=== PATIENT | female | born 1990 | race Caucasian/White ===

== ENCOUNTER → 2016-08-16 | Emergency (ER) | payer MEDICAID, OTHER ==
[~2016-08-16] MED LIST: ALBU18; DIAZ-104; IBUP600T27; NOR5T
== END | disposition left against medical advice (07) ==
LOC: ER 14:12
DX: R10.9 Unspecified abdominal pain (principal); I95.9 Hypotension, unspecified; Z53.21 Procedure and treatment not carried out due to patient leaving prior to being seen by health care provider

== ENCOUNTER 2017-12-14 08:57 | Emergency (ER) | payer MEDICAID ==
[~2017-12-14] VITALS: Ht 152.4 cm; Wt 49.9 kg
[~2017-12-14 08:57] MED LIST changes: +HYDR-4683; -NOR5T
[2017-12-14 09:36] VITALS: BP 126/65
[2017-12-14] MEDS ORDERED: SODIUM CHLORIDE 0.9% 1,000 ML IV ONE (09:45)
[2017-12-14 10:14] LABS: Basophils # (auto) 0 uL; Basophils % (auto) 0.2 % (0.0-2.0); Eosinophils # (auto) 0 uL; Eosinophils % (auto) 0.3 % (0.0-7.0); Hematocrit 36.7 % (36.0-46.0); Hemoglobin 12.1 g/dL (12.2-16.2); Lymphocytes % (auto) 19.9 % (10.0-50.0); Mean Corpuscular Hemoglobin 28.1 pg (28.0-32.0); Mean Corpuscular Volume 85.4 fL (80.0-100.0); Monocytes # (auto) 0.3 uL; Monocytes % (auto) 5.9 % (0.0-12.0); Neutrophils # (auto) 3.6 uL; Neutrophils % (auto) 73.7 % (37.0-80.0); Platelet Count (auto) 326 10^3/uL (140-450); Red Blood Cells 4.29 10^6/uL (4.0-5.20); Red Cell Distribution Width 15.2 % (11.8-14.3); White Blood Cell 4.9 10^3/uL (4.4-10.8)
[2017-12-14 10:34] LABS: Albumin 4.3 g/dL (3.4-5.0); BUN/Creatinine Ratio 12.7; Bilirubin, Total 0.4 mg/dL (0.2-1.0); Calcium 8.6 mg/dL (8.5-10.1); Potassium 3.8 mmol/L (3.5-5.1); Total Protein 7.5 g/dL (6.4-8.2)
[2017-12-14 10:36] LABS: Urine WBC None Seen /hpf (0 - 5)
[2017-12-14 11:01] LABS: Alcohol, Urine < 3.0 mg/dL (0-5); Amphetamine Screen, Urine NEGATIVE (NEGATIVE); Barbiturate Scree,Urine NEGATIVE (NEGATIVE); Benzodiazephine Screen, Urine POSITIVE (NEGATIVE); Cannabinoid Screen, Urine POSITIVE (NEGATIVE); Cocaine Screen, Urine NEGATIVE (NEGATIVE); Opiate Scree,Urine NEGATIVE (NEGATIVE); Phencyclidine Screen, Urine NEGATIVE (NEGATIVE)
[2017-12-14 11:12] LABS: Urine Bacteria NONE SEEN /hpf (None Seen); Urine Blood 3+ /uL (Negative); Urine Specific Gravity 1.008 (1.001-1.035)
== END 2017-12-14 11:24 | disposition home or self-care (01) ==
LOC: ER 08:57
DX: N20.0 Calculus of kidney (principal); J45.909 Unspecified asthma, uncomplicated; F41.9 Anxiety disorder, unspecified; R42 Dizziness and giddiness
CPT/HCPCS: 36415; 70450; 74176; 80053; 80307; 81001; 81025; 85025

== ENCOUNTER 2019-04-16 19:55 | Emergency (ER) | payer MEDICAID, OTHER ==
[~2019-04-16] VITALS: Ht 152.4 cm; Wt 49.0 kg
[~2019-04-16 19:55] MED LIST changes: -DIAZ-104; +DIAZ5TAB; -HYDR-4683; +HYDR-4833
[2019-04-16] MEDS ORDERED: methylPREDNISolone SOD SUCC 125 MG/2 ML VL IM ONE (23:00)
[2019-04-16] MEDS ORDERED: diphenhdrAMINE HCL 50 MG/1 ML VL IM ONE (23:00)
[2019-04-16 23:25] VITALS: BP 109/56
== END 2019-04-16 23:27 | disposition home or self-care (01) ==
LOC: ER 19:57
DX: H66.91 Otitis media, unspecified, right ear (principal); L25.8 Unspecified contact dermatitis due to other agents; R51 Headache; J45.909 Unspecified asthma, uncomplicated; Z98.61 Coronary angioplasty status; Z87.442 Personal history of urinary calculi
CPT/HCPCS: 96372; 99283; J1200; J2930

== ENCOUNTER 2021-06-06 07:56 | Inpatient (IN) | payer OTHER ==
[~2021-06-06] VITALS: Ht 152.4 cm; Wt 57.4 kg
[2021-06-06] MEDS ORDERED: SODIUM CHLORIDE 0.9% 1,000 ML IV ONE ×2 (08:30)
[2021-06-06] MEDS ORDERED: PROCHLORPERAZINE EDISYLATE 5 MG/ML 2ML VIAL IV ONE (08:30)
[2021-06-06 08:34] LABS: Eosinophils # (auto) 0 10 ^3/uL (0-0.8); Eosinophils % (auto) 0.3 % (0.0-7.0); Monocytes # (auto) 0.7 10 ^3/uL (0-1.3); Red Cell Distribution Width 16.8 % (11.8-14.3)
[2021-06-06 08:38] LABS: Basophils # (auto) 0 10 ^3/uL (0-0.2); Basophils % (auto) 0.2 % (0.0-2.0); Hematocrit 33.6 % (36.0-46.0); Hemoglobin 10.9 g/dL (12.2-16.2); Lymphocytes # (auto) 1.2 10 ^3/uL (0.4-5.4); Lymphocytes % (auto) 8.2 % (10.0-50.0); Mean Corpuscular Hemoglobin 24.3 pg (28.0-32.0); Mean Corpuscular Hgb Conc. 32.4 g/dL (32.0-36.0); Monocytes % (auto) 4.5 % (0.0-12.0); Neutrophils # (auto) 12.7 10 ^3/uL (1.6-8.6); Neutrophils % (auto) 86.8 % (37.0-80.0); Red Blood Cells 4.48 10^6/uL (4.0-5.20); White Blood Cell 14.7 10^3/uL (4.4-10.8)
[2021-06-06 08:45] LABS: Albumin 4.4 g/dL (3.4-5.0); Calcium 9.3 mg/dL (8.5-10.1); Potassium 3.9 mmol/L (3.5-5.1)
[2021-06-06 08:49] LABS: Bilirubin, Total 0.2 mg/dL (0.2-1.0); Total Protein 7.7 g/dL (6.4-8.2)
[2021-06-06] MEDS ORDERED: MORPHINE SULFATE 4 MG/ML SYR/VIAL IV ONE (09:00)
[2021-06-06 10:20] LABS: Urine Bacteria NONE SEEN /hpf (None Seen); Urine Blood Negative /uL (Negative); Urine Mucus FEW (None Seen); Urine Specific Gravity 1.023 (1.001-1.035); Urine WBC 1 /hpf (0 - 5)
[2021-06-06] MEDS ORDERED: ONDANSETRON HCL 4 MG/2 ML VIAL ONE (10:35)
[2021-06-06 10:45] LABS: Alcohol, Urine < 3.0 mg/dL (0-10); Amphetamine Screen, Urine NEGATIVE (NEGATIVE); Barbiturate Scree,Urine NEGATIVE (NEGATIVE); Benzodiazephine Screen, Urine NEGATIVE (NEGATIVE); Cannabinoid Screen, Urine POSITIVE (NEGATIVE); Cocaine Screen, Urine NEGATIVE (NEGATIVE); Opiate Scree,Urine NEGATIVE (NEGATIVE); Phencyclidine Screen, Urine NEGATIVE (NEGATIVE)
[2021-06-06] MEDS ORDERED: ONDANSETRON HCL 4 MG/2 ML VIAL IV ONE ×2 (11:00→16:15)
[2021-06-06] MEDS ORDERED: metroNIDAZOLE 500MG/100ML 100 ML IV ONE (11:45)
[2021-06-06] MEDS ORDERED: cefTRIAXone 1GM/50ML D5W 50 ML IV ONE (11:45)
[2021-06-06] MEDS ORDERED: PROMETHAZINE HCL 25 MG/ML 1ML ONE (13:11)
[2021-06-06] MEDS ORDERED: PROMETHAZINE HCL 25 MG/ML 1ML IV ONE (13:15)
[2021-06-06 14:03] LABS: INR 1.1 (0.9-1.15); Partial Thromboplastin Time 27.1 sec (23.6-33.0)
[2021-06-06] MEDS ORDERED: NITROGLYCERIN 0.4 MG SL TAB SL PRN (15:00)
[2021-06-06] MEDS ORDERED: MORPHINE SULFATE INJECTION 2 MG/ML SYRG IV PRN ×2 (15:00→17:15)
[2021-06-06] MEDS ORDERED: ONDANSETRON HCL 4 MG/2 ML VIAL IV PRN ×2 (17:00→17:15)
[2021-06-06] MEDS ORDERED: ceFAZolin 1GM/50ML 50 ML IV ONE (17:15)
[2021-06-06] MEDS ORDERED: PROCHLORPERAZINE EDISYLATE 5 MG/ML 2ML VIAL IV PRN (17:15)
[2021-06-06] MEDS ORDERED: FAMOTIDINE (10MG/ML) 2ML VL IV ONE (17:15)
[2021-06-06] MEDS ORDERED: LORazepam 0.5 MG TAB PO PRN (17:15)
[2021-06-06] MEDS ORDERED: ALBUTEROL SULF 2.5 MG/0.5ML(0.5%) NEB SOLN NEB PRN (17:30)
[2021-06-06] MEDS: D5W/SOD CHLO 0.9% 1,000 ML IV SCH (17:35)
[2021-06-07] MEDS: ceFAZolin 1GM/50ML 50 ML IV SCH ×3 (02:58→16:27)
[2021-06-07 05:37] VITALS: BP 95/53
[2021-06-07] MEDS ORDERED: SUCCINYLCHOLINE CHLORIDE 20 MG/ML 10ML VIAL IV ONE (06:55)
[2021-06-07] MEDS ORDERED: ROCURONIUM 10MG/ML 10ML VIAL IV ONE (06:55)
[2021-06-07] MEDS ORDERED: LIDOCAINE 1%-Mpf/Epinephrine 1:200,000 ONE (07:02)
[2021-06-07 07:08] LABS: Basophils # (auto) 0 10 ^3/uL (0-0.2); Eosinophils # (auto) 0 10 ^3/uL (0-0.8); Hemoglobin 8.9 g/dL (12.2-16.2); Monocytes # (auto) 0.4 10 ^3/uL (0-1.3); Neutrophils # (auto) 5.3 10 ^3/uL (1.6-8.6)
[2021-06-07 07:12] LABS: Basophils % (auto) 0.3 % (0.0-2.0); Eosinophils % (auto) 0.1 % (0.0-7.0); Hematocrit 26.4 % (36.0-46.0); Lymphocytes % (auto) 14.9 % (10.0-50.0); Mean Corpuscular Hemoglobin 25.3 pg (28.0-32.0); Mean Corpuscular Hgb Conc. 33.7 g/dL (32.0-36.0); Mean Corpuscular Volume 75.1 fL (80.0-100.0); Monocytes % (auto) 5.3 % (0.0-12.0); Neutrophils % (auto) 79.4 % (37.0-80.0); Nucleated Red Blood Cells % 0.1 %; Red Blood Cells 3.51 10^6/uL (4.0-5.20); Red Cell Distribution Width 16.7 % (11.8-14.3); White Blood Cell 6.7 10^3/uL (4.4-10.8)
[2021-06-07 07:18] LABS: INR 1.11 (0.9-1.15); Partial Thromboplastin Time 29.4 sec (23.6-33.0)
[2021-06-07 07:23] LABS: Potassium 3.2 mmol/L (3.5-5.1)
[2021-06-07] MEDS ORDERED: PROPOFOL 10 MG/ML 20 ML IV ONE (07:30)
[2021-06-07] MEDS ORDERED: ONDANSETRON HCL 4 MG/2 ML VIAL ONE (07:30)
[2021-06-07] MEDS ORDERED: GLYCOPYRROLATE 0.2 MG/ML 1ML VIAL ONE (07:30)
[2021-06-07] MEDS ORDERED: MIDAZOLAM HCL 2MG/2ML 2ml VIAL (1mg/ml) ONE (07:30)
[2021-06-07] MEDS ORDERED: MEPERIDINE HCL (25 MG/ML) 1ML VIAL ONE (07:30)
[2021-06-07] MEDS ORDERED: NEOSTIGMINE 1 MG/ML INJ (10mg/10ML VIAL) ONE (07:30)
[2021-06-07] MEDS ORDERED: SODIUM CHLORIDE LOCK 10 ML ONE (07:30)
[2021-06-07] MEDS ORDERED: fentaNYL CITRATE 100 MCG/2 ML VL ONE (07:30)
[2021-06-07 07:35] LABS: Albumin 3.5 g/dL (3.4-5.0); BUN/Creatinine Ratio 18.8; Bilirubin, Total 0.4 mg/dL (0.2-1.0); CRP High Sensitivity 1.44 mg/dL (< 0.3); Calcium 8.1 mg/dL (8.5-10.1); Phosphorus 1.8 mg/dL (2.5-4.90); Total Protein 6.1 g/dL (6.4-8.2)
[2021-06-07 08:05] VITALS: BP 115/65
[2021-06-07 09:00] VITALS: BP 115/65
[2021-06-07] MEDS: FAMOTIDINE (10MG/ML) 2ML VL IV SCH (09:43)
[2021-06-07] MEDS: ENOXAPARIN SOD 40 MG/0.4 ML SYRINGE SC SCH (09:44)
[2021-06-07 13:00] VITALS: BP 119/59
[2021-06-07] MEDS: D5W/SOD CHLO 0.9% 1,000 ML IV SCH (13:42)
[2021-06-07] MEDS: ACETAMINOPHEN 325 MG TAB PO PRN ×2 (14:38→20:12)
[2021-06-07] MEDS ORDERED: POTASSIUM PHOSPHATE 44 MEQ in D5W 5% 250 ML IV ONE (15:15)
[2021-06-07 17:00] VITALS: BP 110/70
[2021-06-07 17:08] LABS: Amphetamine Screen, Urine NEGATIVE (NEGATIVE); Barbiturate Scree,Urine NEGATIVE (NEGATIVE); Benzodiazephine Screen, Urine NEGATIVE (NEGATIVE); Cannabinoid Screen, Urine POSITIVE (NEGATIVE); Cocaine Screen, Urine NEGATIVE (NEGATIVE); Opiate Scree,Urine NEGATIVE (NEGATIVE); Phencyclidine Screen, Urine NEGATIVE (NEGATIVE)
[2021-06-07 22:00] VITALS: BP 101/67
[2021-06-08] MEDS: ceFAZolin 1GM/50ML 50 ML IV SCH ×3 (01:25→18:00)
[2021-06-08] MEDS: ACETAMINOPHEN 325 MG TAB PO PRN ×3 (04:49→20:51)
[2021-06-08 05:00] VITALS: BP 99/54
[2021-06-08 07:11] LABS: Basophils # (auto) 0 10 ^3/uL (0-0.2); Basophils % (auto) 0.6 % (0.0-2.0); Eosinophils # (auto) 0 10 ^3/uL (0-0.8); Eosinophils % (auto) 0.6 % (0.0-7.0); Hematocrit 26.3 % (36.0-46.0); Hemoglobin 8.8 g/dL (12.2-16.2); Lymphocytes # (auto) 1.2 10 ^3/uL (0.4-5.4); Lymphocytes % (auto) 24.5 % (10.0-50.0); Mean Corpuscular Hemoglobin 25.1 pg (28.0-32.0); Mean Corpuscular Hgb Conc. 33.6 g/dL (32.0-36.0); Mean Corpuscular Volume 74.7 fL (80.0-100.0); Monocytes # (auto) 0.5 10 ^3/uL (0-1.3); Monocytes % (auto) 9.8 % (0.0-12.0); Neutrophils # (auto) 3.1 10 ^3/uL (1.6-8.6); Neutrophils % (auto) 64.5 % (37.0-80.0); Nucleated Red Blood Cells % 0.1 %; Red Blood Cells 3.52 10^6/uL (4.0-5.20); White Blood Cell 4.8 10^3/uL (4.4-10.8)
[2021-06-08 07:45] LABS: Calcium 8.8 mg/dL (8.5-10.1); Chloride 111 mmol/L (98-107); Potassium 3.4 mmol/L (3.5-5.1); Sodium 141 mmol/L (136-145)
[2021-06-08 08:06] LABS: Alanine Aminotransferase 14 U/L (13-56); Albumin 3.6 g/dL (3.4-5.0); Alkaline Phosphatase 44 U/L (45-117); Anion Gap 7 (5-15); Aspartate Aminotransferase 12 U/L (15-37); BUN/Creatinine Ratio 7.8; Bilirubin, Total 0.4 mg/dL (0.2-1.0); Blood Urea Nitrogen 4 mg/dL (7-18); CRP High Sensitivity 0.87 mg/dL (< 0.3); Carbon Dioxide 23 mmol/L (21-32); GFR African American 181 mL/min; GFR Non-African American 149 mL/min; Glucose 89 mg/dL (74-106)
[2021-06-08] MEDS: FAMOTIDINE (10MG/ML) 2ML VL IV SCH (08:45)
[2021-06-08] MEDS: ZINC SULFATE 220mg CAP or TAB PO SCH (08:46)
[2021-06-08] MEDS: CHOLECALCIFEROL (VITD3) 2,000 UNIT CAP/TAB PO SCH (08:47)
[2021-06-08] MEDS: ENOXAPARIN SOD 40 MG/0.4 ML SYRINGE SC SCH ×2 (08:47→09:09)
[2021-06-08] MEDS: ASCORBIC ACID 1,000 MG TAB PO SCH (08:47)
[2021-06-08] MEDS: D5W/SOD CHLO 0.9% 1,000 ML IV SCH (09:15)
[2021-06-08] MEDS ORDERED: POTASSIUM EFFERVESENT TAB 25 MEQ PO ONE (10:30)
[2021-06-08 16:00] VITALS: BP 112/68
[2021-06-08 22:00] VITALS: BP 104/69
[2021-06-09] MEDS: ceFAZolin 1GM/50ML 50 ML IV SCH ×2 (01:40→08:42)
[2021-06-09 04:00] VITALS: BP 108/66
[2021-06-09] MEDS: D5W/SOD CHLO 0.9% 1,000 ML IV SCH (05:15)
[2021-06-09 07:59] LABS: Hematocrit 30.5 % (36.0-46.0); Hemoglobin 10.2 g/dL (12.2-16.2)
[2021-06-09 08:00] VITALS: BP 102/65
[2021-06-09] MEDS: ZINC SULFATE 220mg CAP or TAB PO SCH (08:42)
[2021-06-09] MEDS: ASCORBIC ACID 1,000 MG TAB PO SCH (08:43)
[2021-06-09] MEDS: CHOLECALCIFEROL (VITD3) 2,000 UNIT CAP/TAB PO SCH (08:43)
[2021-06-09] MEDS: ENOXAPARIN SOD 40 MG/0.4 ML SYRINGE SC SCH (08:43)
[2021-06-09] MEDS: ACETAMINOPHEN 325 MG TAB PO PRN (08:44)
[2021-06-09] MEDS: FAMOTIDINE (10MG/ML) 2ML VL IV SCH (11:00)
[2021-06-09] MEDS ORDERED: LEVO500T31 PO (13:39)
[2021-06-09] MEDS ORDERED: METR500T PO (13:39)
[2021-06-09] MEDS ORDERED: ASCO10003 PO (13:41)
[2021-06-09] MEDS ORDERED: CHOL20007 PO (13:41)
[2021-06-09] MEDS ORDERED: ZINC220T6 PO (13:41)
== END 2021-06-09 15:17 | disposition home or self-care (01) | DRG 254 ==
LOC: ER 07:56 → OVERFLOW 14:52 → WEST WING 06-07 01:58
PROVIDERS: ADMIT Hospitalist; ATTEND Internal Medicine
DX: K35.80 Unspecified acute appendicitis (principal); U07.1 COVID-19; M32.9 Systemic lupus erythematosus, unspecified; E87.6 Hypokalemia; N83.202 Unspecified ovarian cyst, left side; F12.90 Cannabis use, unspecified, uncomplicated; F17.210 Nicotine dependence, cigarettes, uncomplicated; F41.9 Anxiety disorder, unspecified; D64.9 Anemia, unspecified; J45.20 Mild intermittent asthma, uncomplicated; Z87.442 Personal history of urinary calculi
CPT/HCPCS: 36415; 71045; 74176; 76830; 76856; 80053; 80061; 80307; 81001; 81025; 82306; 83036; 83605; 83690; 83735; 84100; 84132; 84484; 84702; 85014; 85018; 85025; 85379; 85610; 85730; 86141; 86850; 86900; 86901; 87040; 87086; 87426; 87493; 93005; 96361; 96365; 96367; 96375; 96376; G0378; J0330; J0690; J0696; J2250; J2405; J2704; J3490; J7042; J7060

== ENCOUNTER 2022-07-20 09:28 | Emergency (ER) | payer MEDICAID, OTHER ==
[~2022-07-20] VITALS: Ht 152.4 cm; Wt 48.9 kg
[~2022-07-20 09:28] MED LIST changes: -ALBU18; +ASCO10003 PO; +CHOL20007 PO; -DIAZ5TAB; -HYDR-4833; -IBUP600T27; +LEVO500T31 PO; +METR500T PO; +ZINC220T6 PO
[2022-07-20 09:52] LABS: Basophils # (auto) 0 10 ^3/uL (0-0.2); Eosinophils # (auto) 0.1 10 ^3/uL (0-0.8); Mean Corpuscular Volume 64.5 fL (80.0-100.0); Monocytes # (auto) 0.5 10 ^3/uL (0-1.3); Neutrophils # (auto) 4.7 10 ^3/uL (1.6-8.6); Nucleated Red Blood Cells % 0.1 %; White Blood Cell 6.3 10^3/uL (4.4-10.8)
[2022-07-20 09:54] LABS: Basophils % (auto) 0.7 % (0.0-2.0); Eosinophils % (auto) 1.4 % (0.0-7.0); Hematocrit 31.6 % (36.0-46.0); Lymphocytes % (auto) 16.7 % (10.0-50.0); Mean Corpuscular Hemoglobin 20.3 pg (28.0-32.0); Mean Corpuscular Hgb Conc. 31.5 g/dL (32.0-36.0); Monocytes % (auto) 7.2 % (0.0-12.0); Red Cell Distribution Width 18.6 % (11.8-14.3)
[2022-07-20 10:17] LABS: Urine Bacteria FEW /hpf (None Seen); Urine Blood Negative /uL (Negative); Urine Specific Gravity 1.008 (1.001-1.035); Urine WBC 2 /hpf (0 - 5)
[2022-07-20 10:21] LABS: Albumin 4.5 g/dL (3.4-5.0); BUN/Creatinine Ratio 14.3 (10.0-20.0); Bilirubin, Total 0.7 mg/dL (0.2-1.0); Potassium 3.3 mmol/L (3.5-5.1)
[2022-07-20] MEDS ORDERED: SODIUM CHLORIDE 0.9% 1,000 ML IV ONE ×3 (13:45→14:00)
[2022-07-20 15:09] VITALS: BP 105/65
== END 2022-07-20 15:14 | disposition home or self-care (01) ==
LOC: ER 09:28
DX: N20.0 Calculus of kidney (principal); J45.909 Unspecified asthma, uncomplicated; F12.10 Cannabis abuse, uncomplicated; R10.2 Pelvic and perineal pain; Z88.2 Allergy status to sulfonamides
CPT/HCPCS: 36415; 74176; 80053; 81001; 84702; 85025; 85045; 96360; 99284; J7030

== ENCOUNTER 2024-04-16 09:36 | Emergency (ER) | payer OTHER, MEDICAID ==
[~2024-04-16] VITALS: Ht 152.4 cm; Wt 50.3 kg
[2024-04-16 10:20] VITALS: BP 107/49; PULSE 80; RESP 17; TEMP 98.5; O2SAT 100
[2024-04-16] MEDS: KETOROLAC TROMETH 30 MG/ML 1ML VIAL IM ONE (10:22)
[2024-04-16] MEDS: CYCLOBENZAPRINE HCL 10 MG TAB PO ONE (10:22)
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
[2024-04-16] MEDS ORDERED: IBUP1TAB4 PO (10:53)
[2024-04-16] MEDS ORDERED: CYCL-837 PO (10:53)
== END 2024-04-16 11:00 | disposition home or self-care (01) ==
LOC: ER 09:36
DX: S00.80XA Unspecified superficial injury of other part of head, initial encounter (principal); J45.909 Unspecified asthma, uncomplicated; F15.90 Other stimulant use, unspecified, uncomplicated; M54.59 Other low back pain; Z79.899 Other long term (current) drug therapy; Z87.442 Personal history of urinary calculi; Z98.890 Other specified postprocedural states; V89.2XXA Person injured in unspecified motor-vehicle accident, traffic, initial encounter; Y93.89 Activity, other specified; Y92.89 Other specified places as the place of occurrence of the external cause; Y99.8 Other external cause status
CPT/HCPCS: 96372; 99283; J1885

== ENCOUNTER 2024-06-29 23:23 | Inpatient (IN) | payer MEDICAID, OTHER ==
[~2024-06-29] VITALS: Ht 152.4 cm; Wt 54.9 kg
[~2024-06-29 23:23] MED LIST changes: +CYCL-837 PO; +IBUP1TAB4 PO
[2024-06-30] VITALS (8 sets, daily range): BP systolic 95–110; BP diastolic 52–65; PULSE 66–98; RESP 13–18; TEMP 97.9–98.5; O2SAT 95–100
--- NOTE | 2024-06-30 00:03 | ED.PDOC ---
History of Present Illness(SKN HPI Comments This is a 34-year-old female patient history of lupus chief complaint of rash x 4 day for unknown reason and unknown source. Pt has bilateral small red and r aised rash to upper legs and lower back, very faint rash on forearms. Pt in 5/10 pain describes as itching and burning. Patient also reports body weakness, dizziness over the past several days. She reports history of blood transfusions in the past due to her anemia and lupus she states last was approximate 4-6 months ago. Denies chest pain, shortness of breath, or difficulty breathing. Chief Complaint: Rash Time Seen by MD: 23:26 Primary Care Provider: NONE History of Present Illness: Nurses Notes, Medications, Allergies Allergies: Coded Allergies: NO KNOWN ALLERGIES (Unverified , 08/16/11) Home Meds Active Scripts Ibuprofen Micronized (Ibuprofen) 400 Mg Tab, 400 MG PO Q6HPRN PRN, #30 TAB Prov:NGHIA THURMAN [facility] 04/16/24 Cyclobenzaprine Hcl (Cyclobenzaprine Hcl) 5 Mg Tab, 1 TAB PO TID, #15 TAB Prov:NGHIA THURMAN [facility] 04/16/24 Zinc Sulfate (Zinc Sulfate) 220 Mg Tab, 220 MG PO DAILY for 14 Days, #14 TAB Prov:GEORGETTE DUARTE MD 06/09/21 Cholecalciferol (VITAMIN D3) 2,000 Unit Tab, 1 TAB PO DAILY, #30 TAB Prov:GEORGETTE DUARTE MD 06/09/21 Ascorbic Acid (Gnp Vitamin C W/Doreen Hips) 1,000 Mg Tab, 1000 MG PO DAILY for 30 Days, #30 TAB Prov:GEORGETTE DUARTE MD 06/09/21 Levofloxacin (Levaquin) 500 Mg Tab, 500 MG PO DAILY for 14 Days, #14 TAB Prov:GEORGETTE DUARTE MD 06/09/21 Metronidazole (Flagyl) 500 Mg Tab, 500 MG PO Q8HR for 14 Days, #42 TAB Prov:GEORGETTE DUARTE MD 06/09/21 Information Source: Patient Mode of Arrival: Ambulatory Past Medical History PAST MEDICAL HISTORY: Anxiety, Asthma, Kidney Stones Past Medical History (Other): Lupus 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: , [employer]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 Family History Family History: No family hx of Cancer Social History Smoker: Non-Smoker Alcohol: Denies ETOH Use Drugs: Marijuana Lives In: Home Constitutional: reports: fatigue, weakness; denies: chills, diaphoresis, fever, malaise, sweats, others EENTM: denies: blurred vision, double vision, ear bleeding, ear discharge, ear drainage, ear pain, ear ringing, eye pain, eye redness, hearing loss, mouth pain, mouth swelling, nasal discharge, nose bleeding, nose congestion, nose pain, photophobia, tearing, throat pain, throat swelling, voice changes, others Respiratory: reports: shortness of breath; denies: cough, hemoptysis, orthopnea, SOB at rest, SOB with excertion, stridor, wheezing, others Cardiovascular: denies: chest pain, dizzy spells, diaphoresis, Dyspnea on exertion, edema, irregular heart beat, left arm pain, lightheadedness, palpitations, PND, syncope, others Gastrointestinal: denies: abdomen distended, abdominal pain, blood streaked bowels, constipated, diarrhea, dysphagia, difficulty swallowing, hematemesis, melena, nausea, poor appetite, poor fluid intake, rectal bleeding, rectal pain, vomiting, others Genitourinary: denies: abnormal vagina bleeding, burning, dyspareunia, dysuria, flank pain, frequency, hematuria, incontinence, pain, , vagina discharge, urgency, others Neurological: denies: dizziness, fainting, headache, left sided numbness, left sided weakness, numbness, paresthesia, pre-existing deficit, right sided numbness, right sided weakness, seizure, speech problems, tingling, tremors, weakness, others Musculoskeletal: denies: back pain, gout, joint pain, joint swelling, muscle pain, muscle stiffness, neck pain, others Integumetry: reports: rash; denies: bruises, change in color, change in hair/nails, dryness, laceration, lesions, lumps, wounds, others Allergic/Immunocompromised: denies: Difficulty Healing, Frequent Infections, Hives, Itching, others Hematologic/Lymphatic: reports: anemia; denies: blood clots, easy bleeding, easy bruising, swollen glands, others Endocrine: denies: excessive hunger, excessive sweating, excessive thirst, excessive urination, flushing, intolerance to cold, intolerance to heat, unexplained weight gain, unexplained weight loss, others Psychiatric: denies: anxiety, bipolar disorder, depression, hopeless, panic disorder, schizophrenia, sleepless, suicidal, others Physical Exam General Appearance: No Apparent Distress, Normal HEENT: Pharynx Normal, TMs Normal Neck: Full Range of Motion, Non-Tender Respiratory: Chest Non-Tender, Lungs Clear, No Accessory Muscle Use, No Respiratory Distress, Normal Breath Sounds Cardiovascular: No Edema, No JVD, No Murmur, No Gallop, Normal Peripheral Pulses, Regular Rate/Rhythm Breast Exam: Deferred Gastrointestinal: No Organomegaly, Non Tender, No Pulsatile Mass, Normal Bowel Sounds, Soft Genitalia: Deferred Pelvic: Deferred Rectal: Deferred Extremities: Normal capillary refill, Normal inspection, Normal range of motion, Non-tender, No pedal edema Musculoskeletal : Apperance: Normal 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 Was a procedure done?: No Differential Diagnosis (INTG) Differential Diagnosis: Rosacea, Scarlet Fever, Urticaria, Varicella, Viral exanthema X-Ray, Labs, Meds, VS Vital Signs Date Time Temp Pulse Resp B/P (MAP) Pulse Ox O2 Delivery O2 Flow Rate FiO2 06/30/24 02:36 97.9 97 18 106/64 (78) 100 97.9 06/30/24 02:36 97 18 100 Room Air 06/29/24 23:30 98.0 105 20 116/75 (89) 99 Lab Test 06/30/24 00:09 06/30/24 00:00 Range/Units White Blood Count 6.5 4.4-10.8 10^3/uL Red Blood Count 4.27 4.0-5.20 10^6/uL Hemoglobin 7.6 L 12.2-16.2 g/dL Hematocrit 25.7 L 36.0-46.0 % Mean Corpuscular Volume 60.1 L 80.0-100.0 fL Mean Corpuscular Hemoglobin 17.8 L 28.0-32.0 pg Mean Corpuscular Hemoglobin Concent 29.6 L 32.0-36.0 g/dL Red Cell Distribution Width 20.8 H 11.8-14.3 % Platelet Count 454 H 140-450 10^3/uL Mean Platelet Volume 7.2 6.9-10.8 fL Neutrophils (%) (Auto) 63.9 37.0-80.0 % Lymphocytes (%) (Auto) 25.3 10.0-50.0 % Monocytes (%) (Auto) 7.5 0.0-12.0 % Eosinophils (%) (Auto) 2.7 0.0-7.0 % Basophils (%) (Auto) 0.6 0.0-2.0 % Neutrophils # (Auto) 4.2 1.6-8.6 10 ^3/uL Lymphocytes # (Auto) 1.6 0.4-5.4 10 ^3/uL Monocytes # (Auto) 0.5 0-1.3 10 ^3/uL Eosinophils # (Auto) 0.2 0-0.8 10 ^3/uL Basophils # (Auto) 0 0-0.2 10 ^3/uL Nucleated Red Blood Cells 0.1 % Hypersegmented Neutrophils Platelet Estimate Increased Hypochromasia (manual) Moderate Anisocytosis (manual) Slight Microcytosis Moderate Sodium Level 139 136-145 mmol/L Potassium Level 3.3 L 3.5-5.1 mmol/L Chloride Level 106 98-107 mmol/L Carbon Dioxide Level 26 20-31 mmol/L Anion Gap 7 5-15 Blood Urea Nitrogen 10 9-23 mg/dL Creatinine 0.77 0.550-1.02 mg/dL Glomerular Filtration Rate Calc 104 >90 mL/min BUN/Creatinine Ratio 13.0 10.0-20.0 Serum Glucose 108 H 74-106 mg/dL Calcium Level 9.8 8.7-10.4 mg/dL Total Bilirubin 0.2 0.2-1.0 mg/dL Aspartate Amino Transferase (AST) 15 13-40 U/L Alanine Aminotransferase (ALT) 16 7-40 U/L Alkaline Phosphatase 63 46-116 U/L Total Protein 7.2 5.7-8.2 g/dL Albumin 5.0 H 3.2-4.8 g/dL Urine Color Colorless Yellow Urine Clarity Clear Clear Urine pH 6.0 5.0-9.0 Urine Specific [place] 1.003 1.001-1.035 Urine Protein Negative Negative Urine Ketones Negative Negative Urine Blood 3+ H Negative /uL Urine Nitrite Negative Negative Urine Bilirubin Negative Negative Urine Urobilinogen Normal Negative mg/dL Urine Leukocyte Esterase Negative Negative /uL Urine RBC 85 0 - 4 /hpf Urine Microscopic WBC 5 0-5 /HPF Urine Squamous Epithelial Cells Few <5 /hpf Urine Bacteria Few H None Seen /hpf Urine Yeast (Budding) Occasional None Seen /hpf Urine Glucose Normal Normal mg/dL Current Medications Medications (Trade) Dose Ordered Sig/Lamberto Route Start Time Stop Time Status Last Admin Famotidine (Pepcid Injection) 20 mg ONCE ONCE IV 06/30/24 01:45 06/30/24 01:47 DC 06/30/24 02:35 Diphenhydramine HCl (Benadryl Liquid) 25 mg ONCE ONCE PO 06/30/24 01:45 06/30/24 01:47 DC 06/30/24 02:35 X-Ray, Labs, Meds, VS Comment Labs: Hemoglobin 7.6, hematocrit 25.7. Potassium 3.3 Reports symptoms of anemia with past history of hospital admissions requiring blood transfusions. Admit for symptomatic anemia consider blood transfusion based on patient's continued symptoms and history. Placed for hospitalist, pending admission orders. Patient given Solu-Medrol 40 mg IV, Pepcid 20 mg IV and Benadryl p.o. possible allergic reaction, consider skin eruption possibly related to lupus. Time of 1ST Reevaluation: 02:30 Reevaluation 1ST: Unchanged Patient Education/Counseling: Diagnosis, Treatment, Prognosis, Need For Follow Up Family Education/Counseling: Diagnosis, Treatment, Prognosis Departure 1 Departure Time of Disposition: 01:48 Impression: Primary Impression: Symptomatic anemia Additional Impression: Lupus (systemic lupus erythematosus) Qualified Codes: M32.9 - Systemic lupus erythematosus, unspecified Disposition: 09 ADMITTED INPATIENT Condition: Stable Discharged With: Significant Other Critical Care Note Critical Care Time?: No Stability Stability form required: TOMAS Morgan Jun 30, 2024 00:03
[2024-06-30 00:30] LABS: Basophils # (auto) 0 10 ^3/uL (0-0.2); Basophils % (auto) 0.6 % (0.0-2.0); Eosinophils # (auto) 0.2 10 ^3/uL (0-0.8); Eosinophils % (auto) 2.7 % (0.0-7.0); Hematocrit 25.7 % (36.0-46.0); Hemoglobin 7.6 g/dL (12.2-16.2); Lymphocytes # (auto) 1.6 10 ^3/uL (0.4-5.4); Lymphocytes % (auto) 25.3 % (10.0-50.0); Mean Corpuscular Hemoglobin 17.8 pg (28.0-32.0); Mean Corpuscular Hgb Conc. 29.6 g/dL (32.0-36.0); Mean Corpuscular Volume 60.1 fL (80.0-100.0); Monocytes # (auto) 0.5 10 ^3/uL (0-1.3); Monocytes % (auto) 7.5 % (0.0-12.0); Neutrophils # (auto) 4.2 10 ^3/uL (1.6-8.6); Neutrophils % (auto) 63.9 % (37.0-80.0); Nucleated Red Blood Cells % 0.1 %; Platelet Count (auto) 454 10^3/uL (140-450); Red Blood Cells 4.27 10^6/uL (4.0-5.20); White Blood Cell 6.5 10^3/uL (4.4-10.8)
[2024-06-30 00:32] LABS: Red Cell Distribution Width 20.8 % (11.8-14.3)
[2024-06-30 00:47] LABS: Alanine Aminotransferase 16 U/L (7-40); Alkaline Phosphatase 63 U/L (46-116); Anion Gap 7 (5-15); Aspartate Aminotransferase 15 U/L (13-40); Blood Urea Nitrogen 10 mg/dL (9-23); Calcium 9.8 mg/dL (8.7-10.4); Carbon Dioxide 26 mmol/L (20-31); Chloride 106 mmol/L (98-107); Sodium 139 mmol/L (136-145); Total Protein 7.2 g/dL (5.7-8.2)
[2024-06-30 00:48] LABS: Bilirubin, Total 0.2 mg/dL (0.2-1.0); Glucose 108 mg/dL (74-106); Potassium 3.3 mmol/L (3.5-5.1)
[2024-06-30 00:57] LABS: Urine Bacteria FEW /hpf (None Seen); Urine Blood 3+ /uL (Negative); Urine Budding Yeast OCCASIONAL /hpf (None Seen); Urine Clarity Clear (Clear); Urine Color Colorless (Yellow); Urine Protein, UAD Negative (Negative); Urine Specific Gravity 1.003 (1.001-1.035); Urine Squamous Epithelial Cell FEW /hpf (<5); Urine Urobilinogen Normal (Negative); Urine WBC 5 /HPF (0-5)
[2024-06-30 01:27] LABS: Anisocytosis Slight; Hypochromia Moderate; Platelet Estimate Increased
[2024-06-30] MEDS ORDERED: methylPREDNISolone SOD SUCC 125 MG/2 ML VL IV ONE (01:45)
[2024-06-30] MEDS: diphenhdrAMINE HCL 12.5 MG/5 ML UD PO ONE (02:35)
[2024-06-30] MEDS: FAMOTIDINE (10MG/ML) 2ML VL IV ONE (02:35)
[2024-06-30] MEDS: ACETAMINOPHEN 325 MG TAB PO ONE (04:36)
[2024-06-30] MEDS ORDERED: MORPHINE SULFATE INJ 2 MG/ml SYRG IV PRN (06:00)
[2024-06-30] MEDS ORDERED: ONDANSETRON HCL 4 MG/2 ML VIAL IV PRN (06:00)
[2024-06-30] MEDS ORDERED: DOCUSATE SOD 100 MG CAP PO PRN (06:00)
[2024-06-30] MEDS ORDERED: NITROGLYCERIN 0.4 MG SL TAB SL PRN (06:00)
[2024-06-30] MEDS ORDERED: ACETAMINOPHEN 325 MG TAB PO PRN (06:00)
[2024-06-30] MEDS ORDERED: diphenhdrAMINE HCL 50 MG/1 ML VL IV PRN (06:00)
--- NOTE | 2024-06-30 06:04 | DVHHP2 ---
History of Present Illness Reason for Visit: Symptomatic anemia History of Present Illness Patient is a 34-year-old female with past medical history of lupus, anemia, ovarian cysts, kidney stones, asthma, and anxiety who presented to [facility] ED for evaluation of itching rash for the past 4 days. Patient reports bilateral small red and raised rash to upper legs, lower back, and on forearms. Patient reports burning sensation of the rash, rating 5/10 scale, progressive itching, weakness, dizziness, getting worse that prompted this visit. Patient was seen and evaluated in the ED, laboratory data shows WBC 6.5, hemoglobin 7.6, hematocrit 25.7, platelets 454, sodium 139, potassium 3.3, BUN 10, creatinine 0.77, glucose 108, albumin 5.0, blood pressure 106/64, heart rate 97, temperature 97.9 F, O2 saturation 99% on room air. Patient was started on IV Solu-Medrol, please see medication orders section in the computer. On my assessment, patient denied chest pain, no headache, no dizziness, no shortness a breath, no nausea, no vomiting, no fever, no chills. Patient was admitted for further evaluation and medical management. Past Medical History Anemia, Anxiety, Asthma, Kidney Stones, Lupus,Ovarian Cysts Past 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 , PTCA Family History Reviewed, noncontributory to the management of this case. Past Social History The patient lives at home, denies smoking, alcohol or illicit drugs abuse. Review of Systems Constitutional: Yes: Weakness, Other (Fatigue); No: Fever, Chills, Sweats, Malaise Eyes: No: Pain, Vision change, Conjunctivae inflammation, Eyelid inflammation, Other, Redness ENT: No: Ear pain, Ear discharge, Nose pain, Nose discharge, Nose congestion, Mouth pain, Mouth swelling, Throat pain, Throat swelling, Other Respiratory: No: Cough, Dry, Shortness of breath, SOB with excertion, Wheezing, Hemoptysis, Pleuritic Pain, Sputum, Wheezing, Other Cardiovascular: No: Chest Pain, Palpitations, Orthopnea, Paroxysmal Noc. Dy spnea, Edema, Lt Headedness, Other Gastrointestinal: No: Nausea, Vomiting, Abdominal Pain, Diarrhea, Constipation, Melena, Hematochezia, Other Genitourinary: No Dysuria, No Frequency, No Incontinence, No Hematuria, No Retention, No Other Musculoskeletal: No: other, neck pain, shoulder pain, arm pain, back pain, hand pain, leg pain, foot pain Skin: Rash, Other (Itching skin); No: Lesions, Jaundice, Bruising Neurological: Other (Dizziness); No: Weakness, Numbness, Incoordination, Change in speech, Confusion, Seizures Allergies: Coded Allergies: NO KNOWN ALLERGIES (Unverified , 08/16/11) Exam Vital Signs Vital Signs Date Time Temp Pulse Resp B/P (MAP) Pulse Ox O2 Delivery O2 Flow Rate FiO2 06/30/24 02:36 97.9 97 18 106/64 (78) 100 97.9 06/30/24 02:36 Room Air General Appearance: Alert, Oriented X3, Cooperative, No acute distress HEENT: Atraumatic, PERRLA, EOMI, Mucous membr. moist/pink Respiratory: Clear to auscultation, Normal air movement Cardiovascular: Regular rate, Normal S1, Normal S2, No murmurs Abdominal: Normal bowel sounds, Soft, No tenderness, No hepatospenomegaly, No masses Extremities: No clubbing, No cyanosis, No edema, Normal pulses, No tenderness/swelling Skin: No rashes, No breakdown, No significant lesion Neuro: Normal gait, Normal speech, Strength at 5/5 X4 ext, Normal tone, Sensation intact, Cranial nerves 3-12 NL, Reflexes 2+ Psych/Mental Status: Mental status NL, Mood NL Labs/Xrays Labs Test 06/30/24 00:09 06/30/24 00:00 Range/Units White Blood Count 6.5 4.4-10.8 10^3/uL Red Blood Count 4.27 4.0-5.20 10^6/uL Hemoglobin 7.6 L 12.2-16.2 g/dL Hematocrit 25.7 L 36.0-46.0 % Mean Corpuscular Volume 60.1 L 80.0-100.0 fL Mean Corpuscular Hemoglobin 17.8 L 28.0-32.0 pg Mean Corpuscular Hemoglobin Concent 29.6 L 32.0-36.0 g/dL Red Cell Distribution Width 20.8 H 11.8-14.3 % Platelet Count 454 H 140-450 10^3/uL Mean Platelet Volume 7.2 6.9-10.8 fL Neutrophils (%) (Auto) 63.9 37.0-80.0 % Lymphocytes (%) (Auto) 25.3 10.0-50.0 % Monocytes (%) (Auto) 7.5 0.0-12.0 % Eosinophils (%) (Auto) 2.7 0.0-7.0 % Basophils (%) (Auto) 0.6 0.0-2.0 % Neutrophils # (Auto) 4.2 1.6-8.6 10 ^3/uL Lymphocytes # (Auto) 1.6 0.4-5.4 10 ^3/uL Monocytes # (Auto) 0.5 0-1.3 10 ^3/uL Eosinophils # (Auto) 0.2 0-0.8 10 ^3/uL Basophils # (Auto) 0 0-0.2 10 ^3/uL Nucleated Red Blood Cells 0.1 % Hypersegmented Neutrophils Platelet Estimate Increased Hypochromasia (manual) Moderate Anisocytosis (manual) Slight Microcytosis Moderate Sodium Level 139 136-145 mmol/L Potassium Level 3.3 L 3.5-5.1 mmol/L Chloride Level 106 98-107 mmol/L Carbon Dioxide Level 26 20-31 mmol/L Anion Gap 7 5-15 Blood Urea Nitrogen 10 9-23 mg/dL Creatinine 0.77 0.550-1.02 mg/dL Glomerular Filtration Rate Calc 104 >90 mL/min BUN/Creatinine Ratio 13.0 10.0-20.0 Serum Glucose 108 H 74-106 mg/dL Calcium Level 9.8 8.7-10.4 mg/dL Total Bilirubin 0.2 0.2-1.0 mg/dL Aspartate Amino Transferase (AST) 15 13-40 U/L Alanine Aminotransferase (ALT) 16 7-40 U/L Alkaline Phosphatase 63 46-116 U/L Total Protein 7.2 5.7-8.2 g/dL Albumin 5.0 H 3.2-4.8 g/dL Urine Color Colorless Yellow Urine Clarity Clear Clear Urine pH 6.0 5.0-9.0 Urine Specific [place] 1.003 1.001-1.035 Urine Protein Negative Negative Urine Ketones Negative Negative Urine Blood 3+ H Negative /uL Urine Nitrite Negative Negative Urine Bilirubin Negative Negative Urine Urobilinogen Normal Negative mg/dL Urine Leukocyte Esterase Negative Negative /uL Urine RBC 85 0 - 4 /hpf Urine Microscopic WBC 5 0-5 /HPF Urine Squamous Epithelial Cells Few <5 /hpf Urine Bacteria Few H None Seen /hpf Urine Yeast (Budding) Occasional None Seen /hpf Urine Glucose Normal Normal mg/dL Assessment/Plan Assessment/Plan Symptomatic anemia Hypokalemia Lupus (systemic lupus erythematosus) Systemic lupus erythematosus, unspecified Plan 1. Admit to telemetry unit 2. Breathing treatment 3. Pain control management 4. Management of fluids and electrolytes 5. Consultation for hospitalist 6. Diagnostic tests chest x-ray 7. DVT prophylaxis-on SCDs 8. Repeat labs CBC, CMP in a.m. 9. Continue with current medical management 10. Treatment plan discussed with patient and RN. Patient verbalized understanding. Plan discussed with: Patient, Other (RN) My Orders Orders - SIMON KLINE DNP Procedure Category Date Status Time Complete Blood Count LAB 06/30/24 Verified 05:54 Comprehensive LAB 06/30/24 Verified Metabolic Panel 05:54 Famotidine Injection PHA 06/30/24 Verified (Pepcid Injection) 10:00 Methylprednisolone PHA 06/30/24 Verified Sod Succ (Solu Medrol 06:00 Diphenhdramine PHA 06/30/24 Verified Injection (Benadryl 06:00 Type And Screen BBK 06/30/24 Verified 05:54 Admit ADMIT 06/30/24 Verified 05:54 Allergies [facility] 06/30/24 Verified 05:54 Code Status CODE 06/30/24 Verified 05:54 0.9% Ns 1000 Ml PHA 06/30/24 Verified 06:00 Oxygen Per Hour RT 06/30/24 Verified 05:54 Hydrocodone-Acet PHA 06/30/24 Verified 5/325mg Tab (Gwynn 06:00 Ondansetron Hcl PHA 06/30/24 Verified (Zofran) 06:00 Docusate Sodium PHA 06/30/24 Verified Capsule (Colace 06:00 Complete Blood Count LAB 07/01/24 Verified 04:00 Comprehensive LAB 07/01/24 Verified Metabolic Panel 04:00 Cardiac DIET 06/30/24 Verified Diet-2gna,Lofat,Lochol Breakfast Condition: Serious [facility] 06/30/24 Verified 05:54 Acetaminophen Tablet PHA 06/30/24 Verified (Tylenol Tablet) 06:00 Bedrest With Bathroom [facility] 06/30/24 Verified Privileg 05:54 Sequential [facility] 06/30/24 Verified Compression Device Nitroglycerin PHA 06/30/24 Verified Sublingual (Ntrostat 06:00 Morphine Sulfate [facility] 06/30/24 Verified Injection 06:00 Stat Ekg For Chest [facility] 06/30/24 Verified Pain 05:54 Notify Md Of Changes [facility] 06/30/24 Verified From Base 05:54 Community Representative For [facility] 06/30/24 Verified 24 Hours 05:54 Emergency Dysrhythmia [facility] 06/30/24 Verified Protocol 05:54 Rhythm Strips Once [facility] 06/30/24 Verified Every Shift 05:54 Oxygen By Nasal 06/30/24 Verified Cannula 05:54 Problem List: (1) Symptomatic anemia (2) Hypokalemia (3) Lupus (systemic lupus erythematosus) (4) Systemic lupus erythematosus, unspecified Date of Service: Jun 30, 2024 Billing Provider: SIMON KLINE DNP Common Visit Codes: [id number] INP/OBS CARE (HIGH) SIMON KLINE DNP Jun 30, 2024 06:04
[2024-06-30] MEDS: methylPREDNISolone SOD SUCC 40 MG/ML VL IV SCH (06:19)
[2024-06-30] MEDS: POTASSIUM CHL 20 Meq TABLET PO ONE (06:19)
[2024-06-30 07:02] LABS: Basophils # (auto) 0 10 ^3/uL (0-0.2); Basophils % (auto) 0.1 % (0.0-2.0); Eosinophils # (auto) 0 10 ^3/uL (0-0.8); Eosinophils % (auto) 0.5 % (0.0-7.0); Hematocrit 23.7 % (36.0-46.0); Hemoglobin 7.3 g/dL (12.2-16.2); Lymphocytes # (auto) 0.3 10 ^3/uL (0.4-5.4); Mean Corpuscular Hemoglobin 18.3 pg (28.0-32.0); Mean Corpuscular Hgb Conc. 30.8 g/dL (32.0-36.0); Mean Corpuscular Volume 59.5 fL (80.0-100.0); Monocytes # (auto) 0.2 10 ^3/uL (0-1.3); Monocytes % (auto) 2.3 % (0.0-12.0); Neutrophils % (auto) 93.1 % (37.0-80.0); Platelet Count (auto) 376 10^3/uL (140-450); Red Blood Cells 3.98 10^6/uL (4.0-5.20); Red Cell Distribution Width 20.6 % (11.8-14.3); White Blood Cell 8.6 10^3/uL (4.4-10.8)
[2024-06-30 07:35] LABS: Alanine Aminotransferase 19 U/L (7-40); Albumin 4.7 g/dL (3.2-4.8); Alkaline Phosphatase 61 U/L (46-116); Anion Gap 10 (5-15); Aspartate Aminotransferase 21 U/L (13-40); BUN/Creatinine Ratio 14.9 (10.0-20.0); Blood Urea Nitrogen 10 mg/dL (9-23); Calcium 9.5 mg/dL (8.7-10.4); Carbon Dioxide 23 mmol/L (20-31); Chloride 106 mmol/L (98-107); Sodium 139 mmol/L (136-145); Total Protein 6.9 g/dL (5.7-8.2)
[2024-06-30 07:39] LABS: Bilirubin, Total 0.2 mg/dL (0.2-1.0); Glucose 102 mg/dL (74-106); Potassium 3.1 mmol/L (3.5-5.1)
[2024-06-30] MEDS: SODIUM CHLORIDE 0.9% 1,000 ML IV SCH (07:45)
[2024-06-30] MEDS: FAMOTIDINE (10MG/ML) 2ML VL IV SCH (10:04)
[2024-06-30] MEDS: POTASSIUM EFFERVESENT TAB 25 MEQ PO ONE (11:50)
[2024-06-30 12:12] LABS: INR 1.02 (0.9-1.15); Partial Thromboplastin Time 24.8 SEC (24.5-34.5); Prothrombin Time 10.8 sec (9.3-11.8)
[2024-06-30 12:37] LABS: Thyroid Stimulating Hormone 1.3 uIU/mL (0.55-4.78)
[2024-06-30 13:02] LABS: Erythrocyte Sedimentation Rate 4 mm/hr (0-20)
[2024-06-30 13:21] LABS: Magnesium 1.8 mg/dL (1.6-2.6)
[2024-06-30 13:22] LABS: CRP High Sensitivity 0.08 mg/dL (<1.0)
--- NOTE | 2024-06-30 15:15 | DVHPNRES ---
Progress Note Date Seen: Jun 30, 2024 Resident Creating Document: YUSUF VASQUEZ RESIDENT Medical Necessity Reason Pt with a Central, PICC or Fol: No Subjective Review of Systems Stella Hoffman this is a 34-year-old female with past medical history of SLE diagnosed 2009, anemia, October, nephrolithiasis, asthma, appendectomy, marijuana use and anxiety who presented to the ER after the onset of a rash for the past 4 days. She developed a maculopapular rash food has been starting on bilateral hip, spreading to the abdomen and chest and elbows. The rash spares or soles and feet. Associated features include nausea, no vomiting, itching. She also reports shortness of breaths and cough which is dry for the past 2 days. Patient reports that she usually gets a rash whenever SLE she has flares up. Previously she was taking prednisolone daily for SLE, which did not help her so currently she is not on any medications for SLE. She takes supplements including Co paba oil pills daily. On arrival, patient's hemoglobin was 7.7, MCV 59, i hematocrit l 23. She is currently menstruating but denies hematuria, hemoptysis, melena or hematochezia. Reticulocyte production index is 0.5 which is inadequate. PMH/PSH X: See above Allergic history denies Her medication: Co-paiba oil pills, ascorbic acid, vitamin-D, cyclobenzaprine, ibuprofen, Patient seen and examined at the bedside. Reports no acute distress. Maculopapular rash seen on bilateral lateral thigh which is itchy and mild rash on abdomen and bilateral elbows. Objective vital signs Vital Sign Date Time Temp Pulse Resp B/P (MAP) Pulse Ox O2 Delivery O2 Flow Rate FiO2 06/30/24 12:29 98.2 90 16 110/65 (80) 100 98.2 06/30/24 10:47 Room Air* 0 21 medications Current Medications Medications Dose Ordered Sig/Lamberto Route Start Time Stop Time Status Last Admin Dose Admin Famotidine 20 mg BID IV 06/30/24 10:00 06/30/24 10:04 20 MG Methylprednisolone Sodium Succinate 40 mg Q8HR IV 06/30/24 06:00 06/30/24 13:29 40 MG Diphenhydramine HCl 25 mg Q4HP PRN IV 06/30/24 06:00 Sodium Chloride 1,000 ml @ 60 mls/hr [id number] IV 06/30/24 06:00 06/30/24 07:45 60 MLS/HR Acetaminophen/ Hydrocodone Bitart 1 tab Q4HP PRN PO 06/30/24 06:00 Ondansetron HCl 4 mg Q4HP PRN IV 06/30/24 06:00 Docusate Sodium 100 mg BIDPRN PRN PO 06/30/24 06:00 Acetaminophen 650 mg Q6HP PRN PO 06/30/24 06:00 Nitroglycerin 0.4 mg Q5MINP PRN SL 06/30/24 06:00 Morphine Sulfate 2 mg Q30M PRN IV 06/30/24 06:00 Examination Patient lying in bed, in no acute distress General: Well-built, afebrile, palor, mucosae are moist Cardiovascular: Regular S1 and S2. No murmurs, gallops or rubs. No JVD elevation. No pedal edema Respiratory: Normal B/L air entry on room air. Clear lung sounds on auscultation Abdomen: Soft, nontender, nondistended, normoactive bowel sounds, no rebound tenderness, no organomegaly, no masses Genitourinary: Deferred MSK/skin: Mobilizes 4 limbs. Skin is dry and warm Neurological: No motor, no sensitive deficits, normal speech. Pupils are isocoric and reactive. Psych/Mental Status: A/Ox3 laboratory and microbiology Laboratory Tests 06/30/24 06:45 Test 06/30/24 06:45 Range/Units Serum Glucose 102 74-106 mg/dL Labs and/or images reviewed: Labs reviewed by me, Image(s) reviewed by me Problem List/Assessment/Plan Problem List/Assessment/Plan Possible SLE flare up Maculopapular rash Severe anemia, likely microcytic- Inadequate bone marrow response Retic count 1.14 H&H 7.3/33, MCV 69 Keep hemoglobin greater than 7, transfuse as necessary Iron panel pending, haptoglobin, peripheral smear, pending Sheri test negative LDH unremarkable, patient received Solu-Medrol 80 mg once followed by IV Solu-Medrol 40 mg Q 8 Benadryl p.r.n. IV Hypokalemia Supplemented Asthma-controlled Albuterol nebulized treatment p.r.n. Marijuana use dependence Counseled regarding cessation for more than 22 minutes Left ovarian cyst Outpatient workup advised DVT prophylaxis Lovenox 40 mg sc daily Presenting GERD prophylaxis: Famotidine 20 mg b.i.d. Plan discussed with patient in which all questions have been answered Goals of care discussed with patient for more than 30 minutes, full code status Case discussed with Dr. Ley Plan discussed with: Patient My Orders My Orders Orders - YUSUF VASQUEZ Procedure Category Date Status Time Haptoglobin LAB 06/30/24 In Process 11:22 Vitamin D, 25-Hydroxy LAB 06/30/24 In Process 11:22 Vitamin B12 LAB 06/30/24 In Process 11:22 Iron Panel LAB 06/30/24 In Process 11:24 Covid19 Antigen Lucinda LAB 06/30/24 Logged Rapid Influenza A&B LAB 06/30/24 Logged 11:24 Complete Blood Count LAB 07/01/24 Verified 14:00 YUSUF VASQUEZ Jun 30, 2024 15:15
[2024-06-30] MEDS: ENOXAPARIN SOD 40 MG/0.4 ML SYRINGE SC ONE (15:42)
[2024-06-30] MEDS: HYDROcodone-ACET 5/325MG TAB PO PRN (18:28)
[2024-06-30 20:54] LABS: % Iron Saturation 3.6 % (15-50)
[2024-07-01] VITALS (7 sets, daily range): BP systolic 86–104; BP diastolic 50–63; PULSE 68–89; RESP 16–18; TEMP 97.9–98.1; O2SAT 97–99
[2024-07-01 06:36] LABS: Hemoglobin 7.8 g/dL (12.2-16.2); Mean Corpuscular Volume 60.2 fL (80.0-100.0); White Blood Cell 18.8 10^3/uL (4.4-10.8)
[2024-07-01 06:38] LABS: Hematocrit 26.4 % (36.0-46.0); Mean Corpuscular Hemoglobin 17.7 pg (28.0-32.0); Mean Corpuscular Hgb Conc. 29.4 g/dL (32.0-36.0); Platelet Count (auto) 467 10^3/uL (140-450); Red Blood Cells 4.39 10^6/uL (4.0-5.20)
[2024-07-01 07:07] LABS: Alanine Aminotransferase 37 U/L (7-40); Alkaline Phosphatase 69 U/L (46-116); Anion Gap 10 (5-15); BUN/Creatinine Ratio 10.4 (10.0-20.0); Calcium 10.3 mg/dL (8.7-10.4); Carbon Dioxide 25 mmol/L (20-31); Chloride 106 mmol/L (98-107); Potassium 3.9 mmol/L (3.5-5.1); Sodium 141 mmol/L (136-145); Total Protein 7.5 g/dL (5.7-8.2)
[2024-07-01 07:08] LABS: Aspartate Aminotransferase 32 U/L (13-40)
[2024-07-01 07:09] LABS: Bilirubin, Total 0.3 mg/dL (0.2-1.0)
[2024-07-01 07:10] LABS: Albumin 5.1 g/dL (3.2-4.8); Blood Urea Nitrogen 7 mg/dL (9-23); Glucose 137 mg/dL (74-106)
[2024-07-01 07:43] LABS: Red Cell Distribution Width 20.4 % (11.8-14.3)
[2024-07-01 07:44] LABS: Band Neutrophils % (manual) 0; Basophils % (manual) 0 (0.0-2.0); Blast Cells 0; Eosinophils % (manual) 0 (0-7); Metamyelocytes % 0; Myelocytes % 0; Promyelocytes % 0; Reactive Lymphocytes 0
[2024-07-01 08:49] LABS: COVID19 ANTIGEN SOFIA FIA NEGATIVE (NEGATIVE); Rapid Influenza A Negative (Negative); Rapid Influenza B Negative (Negative)
[2024-07-01] MEDS: SODIUM CHLORIDE 0.9% 500 ML IV ONE (09:38)
[2024-07-01 09:39] LABS: Anisocytosis Slight; Hypochromia Marked; Lymphocytes % (manual) 3 (10.0-50.0); Monocytes % (manual) 3 (0-12); Platelet Estimate Increased
[2024-07-01] MEDS: ENOXAPARIN SOD 40 MG/0.4 ML SYRINGE SC SCH (09:39)
[2024-07-01] MEDS: IRON SUCROSE COMPLEX 110 ML IV ONE (12:20)
[2024-07-01] MEDS: ERGOCALCIFEROL 50,000 UNIT(1.25MG) CAP PO SCH (13:45)
[2024-07-01 14:35] LABS: Basophils # (auto) 0 10 ^3/uL (0-0.2); Eosinophils # (auto) 0 10 ^3/uL (0-0.8); Platelet Count (auto) 417 10^3/uL (140-450)
[2024-07-01 14:38] LABS: Basophils % (auto) 0.2 % (0.0-2.0); Hematocrit 24.6 % (36.0-46.0); Hemoglobin 7.4 g/dL (12.2-16.2); Lymphocytes # (auto) 0.5 10 ^3/uL (0.4-5.4); Lymphocytes % (auto) 2.6 % (10.0-50.0); Mean Corpuscular Hemoglobin 18.1 pg (28.0-32.0); Mean Corpuscular Hgb Conc. 30.3 g/dL (32.0-36.0); Monocytes # (auto) 0.5 10 ^3/uL (0-1.3); Monocytes % (auto) 2.5 % (0.0-12.0); Neutrophils # (auto) 17.5 10 ^3/uL (1.6-8.6); Neutrophils % (auto) 94.7 % (37.0-80.0); Red Cell Distribution Width 20.8 % (11.8-14.3); White Blood Cell 18.5 10^3/uL (4.4-10.8)
[2024-07-01] MEDS ORDERED: PRED10TA PO (14:56)
[2024-07-01] MEDS ORDERED: CHOL500021 OR (14:56)
[2024-07-01] MEDS ORDERED: FER325T PO ×2 (14:56→15:08)
[2024-07-01] MEDS ORDERED: PRED20TA2 PO (14:56)
--- NOTE | 2024-07-01 15:11 | DVHDSRES ---
Discharge Summary Date of Admission Resident Creating Document: YUSUF VASQUEZ RESIDENT Jun 30, 2024 at 05:54 Date of Discharge: Jul 01, 2024 Labs/Diagnostic Data: Laboratory Results Test 07/01/24 14:14 07/01/24 13:44 07/01/24 07:00 07/01/24 05:52 White Blood Count 18.5 10^3/uL (4.4-10.8) Red Blood Count 4.10 10^6/uL (4.0-5.20) Hemoglobin 7.4 g/dL (12.2-16.2) Hematocrit 24.6 % (36.0-46.0) Mean Corpuscular Volume 60.0 fL (80.0-100.0) Mean Corpuscular Hemoglobin 18.1 pg (28.0-32.0) Mean Corpuscular Hemoglobin Concent 30.3 g/dL (32.0-36.0) Red Cell Distribution Width 20.8 % (11.8-14.3) Platelet Count 417 10^3/uL (140-450) Mean Platelet Volume 8.5 fL (6.9-10.8) Neutrophils (%) (Auto) 94.7 % (37.0-80.0) Lymphocytes (%) (Auto) 2.6 % (10.0-50.0) Monocytes (%) (Auto) 2.5 % (0.0-12.0) Eosinophils (%) (Auto) 0.0 % (0.0-7.0) Basophils (%) (Auto) 0.2 % (0.0-2.0) Neutrophils # (Auto) 17.5 10 ^3/uL (1.6-8.6) Lymphocytes # (Auto) 0.5 10 ^3/uL (0.4-5.4) Monocytes # (Auto) 0.5 10 ^3/uL (0-1.3) Eosinophils # (Auto) 0 10 ^3/uL (0-0.8) Basophils # (Auto) 0 10 ^3/uL (0-0.2) Nucleated Red Blood Cells 0.0 % Influenza Type A Antigen Negative (Negative) Influenza Type B Antigen Negative (Negative) SARS-CoV-2 Antigen (Rapid) Negative (NEGATIVE) Differential Total Cells Counted 100.0 (100) Neutrophils % (Manual) 94 (37.0-80.0) Band Neutrophils % (Manual) 0 Lymphocytes % (Manual) 3 (10.0-50.0) Monocytes % (Manual) 3 (0-12) Eosinophils % (Manual) 0 (0-7) Basophils % (Manual) 0 (0.0-2.0) Metamyelocytes % (manual) 0 Myelocytes % (Manual) 0 Promyelocytes % (Manual) 0 Blast Cells % (Manual) 0 Reactive Lymphocytes 0 Platelet Estimate Increased Hypochromasia (manual) Marked Anisocytosis (manual) Slight Microcytosis Marked Sodium Level 141 mmol/L (136-145) Potassium Level 3.9 mmol/L (3.5-5.1) Chloride Level 106 mmol/L (98-107) Carbon Dioxide Level 25 mmol/L (20-31) Anion Gap 10 (5-15) Blood Urea Nitrogen 7 mg/dL (9-23) Creatinine 0.67 mg/dL (0.550-1.02) Glomerular Filtration Rate Calc 118 mL/min (>90) BUN/Creatinine Ratio 10.4 (10.0-20.0) Serum Glucose 137 mg/dL (74-106) Calcium Level 10.3 mg/dL (8.7-10.4) Total Bilirubin 0.3 mg/dL (0.2-1.0) Aspartate Amino Transferase (AST) 32 U/L (13-40) Alanine Aminotransferase (ALT) 37 U/L (7-40) Alkaline Phosphatase 69 U/L (46-116) Total Protein 7.5 g/dL (5.7-8.2) Albumin 5.1 g/dL (3.2-4.8) Test 06/30/24 11:39 06/30/24 06:45 06/30/24 00:09 06/30/24 00:00 Prothrombin Time 10.8 sec (9.3-11.8) Prothrombin Time INR 1.02 (0.9-1.15) Activated Partial Thromboplast Time 24.8 SEC (24.5-34.5) Erythrocyte Sedimentation Rate 4 mm/hr (0-20) Reticulocyte Count (auto) 1.14 % (0.5-1.5) Magnesium Level 1.8 mg/dL (1.6-2.6) Iron Level 14 ug/dL (50-170) Total Iron Binding Capacity 388 ug/dL (250-425) Percent Iron Saturation 3.6 % (15-50) Lactate Dehydrogenase 175 U/L (120-246) C-Reactive Protein High Sensitivity 0.08 mg/dL (<1.0) Vitamin B12 Level 400 pg/mL (211-911) Vitamin D 25-Hydroxy 11.9 ng/mL (30.0-100) Thyroid Stimulating Hormone (TSH) 1.30 uIU/mL (0.55-4.78) Beta HCG, Quantitative 0.1 mIU/mL (1.5-4.2) Hypersegmented Neutrophils Urine Color Colorless (Yellow) Urine Clarity Clear (Clear) Urine pH 6.0 (5.0-9.0) Urine Specific [place] 1.003 (1.001-1.035) Urine Protein Negative (Negative) Urine Ketones Negative (Negative) Urine Blood 3+ /uL (Negative) Urine Nitrite Negative (Negative) Urine Bilirubin Negative (Negative) Urine Urobilinogen Normal mg/dL (Negative) Urine Leukocyte Esterase Negative /uL (Negative) Urine RBC 85 /hpf (0 - 4) Urine Microscopic WBC 5 /HPF (0-5) Urine Squamous Epithelial Cells Few /hpf (<5) Urine Bacteria Few /hpf (None Seen) Urine Yeast (Budding) Occasional /hpf (None Urine Glucose Normal mg/dL (Normal) Other Laboratory Tests 07/01/24 14:14 07/01/24 05:52 Brief Hx & Hospital Course: Stella Hoffman this is a 34-year-old female with past medical history of SLE diagnosed 2009, anemia, January, nephrolithiasis, asthma, appendectomy, marijuana use and anxiety who presented to the ER after the onset of a rash for the past 4 days. She developed a maculopapular rash food has been starting on bilateral hip, spreading to the abdomen and chest and elbows. The rash spares or soles and feet. Associated features include nausea, no vomiting, itching. She also reports shortness of breaths and cough which is dry for the past 2 days. Patient reports that she usually gets a rash whenever SLE she has flares up. Previously she was taking prednisolone daily for SLE, which did not help her so currently she is not on any medications for SLE. She takes supplements including Co paba oil pills daily. On arrival, patient's hemoglobin was 7.7, MCV 59, i hematocrit l 23. She is currently menstruating but denies hematuria, hemoptysis, melena or hematochezia. Reticulocyte production index is 0.5 which is inadequate. Her medication: Co-paiba oil pills, ascorbic acid, vitamin-D, cyclobenzaprine, ibuprofen, During the hospitalization, patient was diagnosed with possible SLE flare-up and was started on Solu-Medrol 40 mg Q 8 hour which was switched to 40 mg b.i.d., also received IV hydration with NS. patient's symptoms resolved after IV Benadryl 25 mg injection. Retic count was 1.14, inadequate bone marrow response given iron-deficiency. Hemolytic studies including haptoglobin and lactate dehydrogenase were unremarkable. Home test was negative. Iron was low, TIBC was high,% saturation was low therefore IV iron 1 dose was supplemented. Patient was counseled regarding cessation of marijuana for more than 25 minutes. She had a left ovarian cyst for which outpatient workup was advised. 07/01/2024 -patient symptoms have improved, she is hemodynamically and clinically stable, rash is resolving therefore patient is discharged with the following instructions Tablet ferrous sulfate 325 mg every Monday, Monday and Monday for the next 30 days Continue prednisone 40 mg for the next 7 days followed by 20 mg for the next 3 days and then 10 mg for the last 3 days. Follow up with [facility] as outpatient within 7 days Follow up with primary care physician within 7 days Follow up with the discharge clinic appointment within 7 days Condition at Discharge: Stable Final Diagnosis/Problems List Possible SLE flare up Maculopapular rash Severe anemia, likely microcytic- Inadequate bone marrow response Leukocytosis, steroid induced Vitamin-D deficiency Hypokalemia Asthma-controlled Marijuana use dependence Left ovarian cyst Discharge Disposition: Home Discharge Instruct/Medications Diet: Regular Activity: No Restrictions, As Tolerated Follow Up/Referral: Follow up with [facility] as outpatient within 7 days Follow up with primary care physician within 7 days Follow up with the discharge clinic appointment within 7 days Medications: Continue prednisone 40 mg for the next 7 days followed by 20 mg for the next 3 days and then 10 mg for the last 3 days. Tablet ferrous sulfate 325 mg every Monday, Monday and Monday for the next 30 days Discharge Statement: "Patient was advised to return to the ER or call 911 if any headaches, dizziness, shortness of breath, chest pain, abdominal pain, bleeding, fevers, or worsening of medical condition. Patient was counseled about treatment plan, medications, possible side effects, patientverbalized understanding. All questions were answered to the best of my ability. This discharge took greater then 30 minutes in planning, reviewing documentation, counseling the patient, and discussing with other team members." ASSESSMENT ASSESSMENT Assessment Possible SLE flare up Maculopapular rash Severe anemia, likely microcytic- Inadequate bone marrow response Vitamin-D deficiency YUSUF VASQUEZ RESIDENT Jul 01, 2024 15:11
[2024-07-01] MEDS ORDERED: methylPREDNISolone SOD SUCC 40 MG/ML VL IV SCH (22:00)
[2024-07-02 08:07] LABS: Complement C3 108 mg/dL (82-167)
== END 2024-07-01 16:21 | disposition home or self-care (01) | DRG 346 ==
LOC: ER 23:23 → OVERFLOW 06-30 05:54 → TELE-EAST 06-30 18:03
PROVIDERS: ADMIT Student in an Organized Health Care Education/Training Program; ATTEND Student in an Organized Health Care Education/Training Program
DX: M32.9 Systemic lupus erythematosus, unspecified (principal); D64.9 Anemia, unspecified; D72.828 Other elevated white blood cell count; E87.6 Hypokalemia; Z20.822 Contact with and (suspected) exposure to COVID-19; J45.909 Unspecified asthma, uncomplicated; T38.0X5A Adverse effect of glucocorticoids and synthetic analogues, initial encounter; Y92.89 Other specified places as the place of occurrence of the external cause; N83.202 Unspecified ovarian cyst, left side; F12.90 Cannabis use, unspecified, uncomplicated; E55.9 Vitamin D deficiency, unspecified; Z90.49 Acquired absence of other specified parts of digestive tract; Z87.442 Personal history of urinary calculi; Z79.899 Other long term (current) drug therapy; Z98.891 History of uterine scar from previous surgery; Z98.61 Coronary angioplasty status
CPT/HCPCS: 36415; 80053; 81001; 82306; 82607; 83010; 83540; 83550; 83615; 83735; 84443; 84702; 85007; 85025; 85027; 85045; 85610; 85652; 85730; 86141; 86160; 86850; 86880; 86900; 86901; 87426; 87804; 96361; 96372; 96374; G0378; J1756; J3490

== ENCOUNTER 2024-08-01 10:03 | Inpatient (IN) | payer MEDICAID ==
[~2024-08-01] VITALS: Ht 152.4 cm; Wt 122.4 kg
[~2024-08-01 10:03] MED LIST changes: -CHOL20007 PO; +CHOL500021 OR; +FER325T PO; -IBUP1TAB4 PO; -LEVO500T31 PO; -METR500T PO; +PRED10TA PO; +PRED20TA2 PO
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
[2024-08-01 10:57] LABS: Urine Bacteria None Seen /hpf (None Seen)
[2024-08-01 10:58] LABS: Eosinophils # (auto) 0 10 ^3/uL (0-0.8); Monocytes # (auto) 0.3 10 ^3/uL (0-1.3)
[2024-08-01 11:00] LABS: Basophils # (auto) 0 10 ^3/uL (0-0.2); Basophils % (auto) 0.5 % (0.0-2.0); Eosinophils % (auto) 0.2 % (0.0-7.0); Hematocrit 33.5 % (36.0-46.0); Hemoglobin 10.5 g/dL (12.2-16.2); Lymphocytes # (auto) 1.1 10 ^3/uL (0.4-5.4); Lymphocytes % (auto) 17.5 % (10.0-50.0); Mean Corpuscular Hgb Conc. 31.3 g/dL (32.0-36.0); Monocytes % (auto) 5.2 % (0.0-12.0); Neutrophils # (auto) 4.6 10 ^3/uL (1.6-8.6); Neutrophils % (auto) 76.6 % (37.0-80.0); Platelet Count (auto) 547 10^3/uL (140-450); Red Cell Distribution Width 28.8 % (11.8-14.3)
[2024-08-01 11:08] LABS: Potassium 3.5 mmol/L (3.5-5.1); Sodium 139 mmol/L (136-145)
[2024-08-01 11:09] LABS: Calcium 10.1 mg/dL (8.7-10.4); Carbon Dioxide 22 mmol/L (20-31)
[2024-08-01 11:12] LABS: Anion Gap 8 (5-15); Chloride 109 mmol/L (98-107)
[2024-08-01 11:14] LABS: BUN/Creatinine Ratio 16.4 (10.0-20.0); Blood Urea Nitrogen 12 mg/dL (9-23); Glucose 92 mg/dL (74-106)
[2024-08-01 11:16] LABS: INR 1.05 (0.9-1.15); Partial Thromboplastin Time 27.1 SEC (24.5-34.5); Prothrombin Time 11.1 sec (9.3-11.8)
[2024-08-01 11:21] LABS: Urine Blood 2+ /uL (Negative); Urine Clarity Clear (Clear); Urine Color Light-Yellow (Yellow); Urine Protein, UAD Negative (Negative); Urine Specific Gravity 1.017 (1.001-1.035); Urine Squamous Epithelial Cell FEW /hpf (<5); Urine Urobilinogen Normal (Negative); Urine WBC 3 /HPF (0-5)
[2024-08-01 11:42] LABS: Anisocytosis Marked; Hypochromia Slight; Platelet Estimate Increased
--- NOTE | 2024-08-01 11:55 | DVH ---
XY CHEST TWO VIEWS ROUTINE CLINICAL HISTORY: SOB COMPARISON: None TECHNIQUE: Frontal and lateral view of the chest was obtained FINDINGS: Lines and Tubes: None Lungs: No focal consolidation. Pleura: No effusion. No pneumothorax. Cardiomediastinal contours: Unremarkable Bones: No acute osseous abnormality. IMPRESSION: No acute cardiopulmonary disease.
[2024-08-01 12:00] VITALS: PULSE 67; RESP 19; O2SAT 98
--- NOTE | 2024-08-01 15:14 | DVHHP2 ---
History of Present Illness Reason for Visit: Shortness of breath with palpitations History of Present Illness Stella Hoffman is a 34-year-old female with past medical history of asthma, lupus, anemia, anxiety, ovarian cysts, left kidney stones, renal stent over 10 years ago those placed, , lithotripsy at [facility] who presents to the ED with shortness of breath with palpitations, dizziness, weakness, nausea, right eye twitching, and right hand numbness. Patient reports that she typically gets anemic and then her heart rate this morning when she was trying to get up from the couch to the kitchen was in the 130s. Patient denies any chest pain, fever, chills, recent trauma or injury, abdominal pain, vomiting, or diarrhea. Patient does report that she uses marijuana. Pulmonary: Asthma Heme/Onc: Anemia NOS Psych: Anxiety Past Medical History Lupus Ovarian cysts Left Kidney stones Past 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: , Other (Renal stent And lithotripsy) Family History: Other (Mom was a drug addict) Smoke: No ALCOHOL: none Drugs: Marijuana Lives: with Family Domestic Violence: Neg Review of Systems Constitutional: Yes: Weakness Respiratory: Shortness of breath Cardiovascular: Palpitations Gastrointestinal: Nausea Neurological: Numbness Other Right eye twitching Allergies: Coded Allergies: NO KNOWN ALLERGIES (Unverified , 08/16/11) Exam Vital Signs Vital Signs Date Time Temp Pulse Resp B/P (MAP) Pulse Ox O2 Delivery O2 Flow Rate FiO2 08/01/24 12:00 67 19 98 Room Air* 0 21 08/01/24 11:54 98.0 100/57 (71) 98.0 General Appearance: Alert, Oriented X3, Cooperative, No acute distress HEENT: Atraumatic, PERRLA, EOMI, Mucous membr. moist/pink Respiratory: Clear to auscultation, Normal air movement Cardiovascular: Regular rate, Normal S1, Normal S2, No murmurs Abdominal: Normal bowel sounds, Soft, No tenderness, No hepatospenomegaly, No masses Extremities: No clubbing, No cyanosis, No edema, Normal pulses, No tenderness/swelling Skin: No rashes, No breakdown, No significant lesion Neuro: Normal gait, Normal speech, Strength at 5/5 X4 ext, Normal tone, Sensation intact Psych/Mental Status: Mental status NL, Mood NL Labs/Xrays Labs Test 08/01/24 10:48 08/01/24 10:35 08/01/24 10:30 Range/Units White Blood Count 6.0 4.4-10.8 10^3/uL Red Blood Count 5.00 4.0-5.20 10^6/uL Hemoglobin 10.5 L 12.2-16.2 g/dL Hematocrit 33.5 L 36.0-46.0 % Mean Corpuscular Volume 67.0 L 80.0-100.0 fL Mean Corpuscular Hemoglobin 21.0 L 28.0-32.0 pg Mean Corpuscular Hemoglobin Concent 31.3 L 32.0-36.0 g/dL Red Cell Distribution Width 28.8 H 11.8-14.3 % Platelet Count 547 H 140-450 10^3/uL Mean Platelet Volume 7.2 6.9-10.8 fL Neutrophils (%) (Auto) 76.6 37.0-80.0 % Lymphocytes (%) (Auto) 17.5 10.0-50.0 % Monocytes (%) (Auto) 5.2 0.0-12.0 % Eosinophils (%) (Auto) 0.2 0.0-7.0 % Basophils (%) (Auto) 0.5 0.0-2.0 % Neutrophils # (Auto) 4.6 1.6-8.6 10 ^3/uL Lymphocytes # (Auto) 1.1 0.4-5.4 10 ^3/uL Monocytes # (Auto) 0.3 0-1.3 10 ^3/uL Eosinophils # (Auto) 0 0-0.8 10 ^3/uL Basophils # (Auto) 0 0-0.2 10 ^3/uL Nucleated Red Blood Cells 0.0 % Platelet Estimate Increased Hypochromasia (manual) Slight Anisocytosis (manual) Marked Microcytosis Marked Prothrombin Time 11.1 9.3-11.8 sec Prothrombin Time INR 1.05 0.9-1.15 Activated Partial Thromboplast Time 27.1 24.5-34.5 SEC Sodium Level 139 136-145 mmol/L Potassium Level 3.5 3.5-5.1 mmol/L Chloride Level 109 H 98-107 mmol/L Carbon Dioxide Level 22 20-31 mmol/L Anion Gap 8 5-15 Blood Urea Nitrogen 12 9-23 mg/dL Creatinine 0.73 0.550-1.02 mg/dL Glomerular Filtration Rate Calc 111 >90 mL/min BUN/Creatinine Ratio 16.4 10.0-20.0 Serum Glucose 92 74-106 mg/dL Calcium Level 10.1 8.7-10.4 mg/dL Beta HCG, Quantitative 0.8 L 1.5-4.2 mIU/mL Urine Color Light-yellow Yellow Urine Clarity Clear Clear Urine pH 7.0 5.0-9.0 Urine Specific [place] 1.017 1.001-1.035 Urine Protein Negative Negative Urine Ketones 2+ H Negative Urine Blood 2+ H Negative /uL Urine Nitrite Negative Negative Urine Bilirubin Negative Negative Urine Urobilinogen Normal Negative mg/dL Urine Leukocyte Esterase Negative Negative /uL Urine RBC 4 0 - 4 /hpf Urine Microscopic WBC 3 0-5 /HPF Urine Squamous Epithelial Cells Few <5 /hpf Urine Bacteria None seen None Seen /hpf Urine Glucose Normal Normal mg/dL POC Glucose 94 70-106 mg/dl XY CHEST TWO VIEWS ROUTINE CLINICAL HISTORY: SOB COMPARISON: None TECHNIQUE: Frontal and lateral view of the chest was obtained FINDINGS: Lines and Tubes: None Lungs: No focal consolidation. Pleura: No effusion. No pneumothorax. Cardiomediastinal contours: Unremarkable Bones: No acute osseous abnormality. IMPRESSION: No acute cardiopulmonary disease. Assessment/Plan Assessment/Plan Assessment Palpitations Dyspnea Vertigo Weakness Sinus tachycardia Anemia Marijuana use History of asthma History of lupus History of anxiety History of ovarian cyst History of kidney stones left History of History of lithotripsy at [facility] History of renal stent over 10 years ago Plan EKG RBC morphology Beta hCG Type and screen Chest x-ray noted PT/PTT Troponin ordered Echo Lipid panel UDS Mag level Counseled patient cessation of use of marijuana Cardiology consult Home medications reconciled Discussed plan of care with patient, patient's spouse, and nurse DVT prophylaxis-patient ambulating indicated PUD prophylaxis-no history of GERD or GI bleed not indicated Plan discussed with: Patient, Spouse My Orders Orders - ADELINE LAWTON Procedure Category Date Status Time Troponin-I Hs LAB 08/01/24 Transmitted 15:06 Troponin-I Hs LAB 08/01/24 Transmitted 16:06 Troponin-I Hs LAB 08/01/24 Transmitted 18:06 Admit ADMIT 08/01/24 Transmitted 15:06 Code Status CODE 08/01/24 Transmitted 15:06 Vital Signs [facility] 08/01/24 Transmitted 15:06 Cardiac DIET 08/01/24 Transmitted Diet-2gna,Lofat,Lochol Dinner Aspirin Tablet PHA 08/02/24 Transmitted 10:00 Lipitor 40mg Hs PHA 08/01/24 Transmitted Hi-Intensity 22:00 Morphine Sulfate PHA 08/01/24 Transmitted Injection 15:15 Complete Blood Count LAB 08/02/24 Verified 04:00 Basic Metabolic Panel LAB 08/02/24 Verified 04:00 Magnesium LAB 08/02/24 Verified 04:00 Lipid Panel LAB 08/02/24 Verified 04:00 Echo 2d Mode Cardiac US 08/01/24 Transmitted DOP 15:06 Nitroglycerin PHA 08/01/24 Transmitted Sublingual (Ntrostat 15:15 Electrocardigram EKG 08/02/24 Transmitted 04:00 Cardiac [facility] 08/01/24 Transmitted Rehabilitation - Outpa Nitroglycerin PHA 08/01/24 Transmitted Sublingual (Ntrostat 15:15 Morphine Sulfate PHA 08/01/24 Transmitted Injection 15:15 Stat Ekg For Chest [facility] 08/01/24 Transmitted Pain 15:06 Notify Md Of Changes [facility] 08/01/24 Transmitted From Base 15:06 Punchboard Stuffer For [facility] 08/01/24 Transmitted 24 Hours 15:06 Emergency Dysrhythmia [facility] 08/01/24 Transmitted Protocol 15:06 Rhythm Strips Once [facility] 08/01/24 Transmitted Every Shift 15:06 Oxygen By Nasal RT 08/01/24 Transmitted Cannula 15:06 Drug Screen LAB 08/01/24 Transmitted 15:06 Magnesium LAB 08/01/24 Transmitted 15:06 * Cardiology Consult CONS 08/01/24 Verified 15:10 Date of Service: Aug 01, 2024 Billing Provider: ADELINE LAWTON Common Visit Codes: [id number] INP/OBS CARE (HIGH) ADELINE LAWTONP Aug 01, 2024 15:14
[2024-08-01] MEDS ORDERED: NITROGLYCERIN 0.4 MG SL TAB SL PRN ×2 (15:15)
[2024-08-01] MEDS ORDERED: MORPHINE SULFATE 4 MG/ML SYR/VIAL IV PRN (15:15)
[2024-08-01] MEDS ORDERED: MORPHINE SULFATE INJ 2 MG/ml SYRG IV PRN (15:15)
[2024-08-01 15:52] LABS: Amphetamine Screen, Urine Neg (NEGATIVE); Barbiturate Scree,Urine Neg (NEGATIVE); Benzodiazephine Screen, Urine Neg (NEGATIVE); Cannabinoid Screen, Urine Pos (NEGATIVE); Cocaine Screen, Urine Neg (NEGATIVE); Opiate Scree,Urine Neg (NEGATIVE); Phencyclidine Screen, Urine Neg (NEGATIVE)
[2024-08-01 16:07] VITALS: BP 105/66; PULSE 67; RESP 18; TEMP 98; O2SAT 100
--- NOTE | 2024-08-01 16:31 | DVHINCON2 ---
Date Seen: Aug 01, 2024 Referring Physician STEFFANIE Cutler Reason for Consultation Palpitations History of Present Illness This is a 34-year-old female patient who presents to emergency room with chief complaint of palpitations and shortness of breath since 9:00 a.m. this morning. The patient reports she was walking to the restroom when suddenly she began to feel the palpitations and sudden onset of shortness of breath. Associated symptoms include numbness in her right hand. She comes to the emergency room for further evaluation. Initial twelve lead electrocardiogram reveals normal sinus rhythm without any significant ST segment changes. Troponin levels have been negative. Significant past medical history includes systemic lupus erythematosus, anemia, asthma, renal stones, renal stent, and anxiety. Past Medical History Past medical history reviewed. No other significant than mentioned above. Past 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 x3 Family History: Graves' disease G8 MOTHER Family History Family history reviewed. Social History Patient has a five pack-year history, quit smoking approximately six months ago Denies any illicit drug use Denies any alcohol use Allergies: Coded Allergies: NO KNOWN ALLERGIES (Unverified , 08/16/11) Home Meds Active Scripts Ferrous Sulfate (FERROUS SULFATE) 325 Mg Tb, 1 TAB PO DAILY for 30 Days, #15 TAB 0 Refills To be taken every other day, Monday, Monday, Monday. [facility]24 Cholecalciferol (VITAMIN D) 5,000 Unit Tab, 5000 UNIT OR DAILY for 30 Days, #30 TAB 0 Refills [facility]/01/24 Prednisone (Prednisone) 20 Mg Tab, 20 MG PO DAILY for 3 Days, #3 MG 0 Refills [facility] 07/01/24 Prednisone (Prednisone) 10 Mg Tab, 10 MG PO DAILY for 3 Days, #3 MG 0 Refills [facility] 07/01/24 Prednisone (Prednisone) 20 Mg Tab, 40 MG PO DAILY for 7 Days, #7 MG 0 Refills [facility] 07/01/24 Cyclobenzaprine Hcl (Cyclobenzaprine Hcl) 5 Mg Tab, 1 TAB PO TID, #15 TAB Prov:NGHIA THURMAN 04/16/24 Zinc Sulfate (Zinc Sulfate) 220 Mg Tab, 220 MG PO DAILY for 14 Days, #14 TAB Prov:GEORGETTE DUARTE MD 06/09/21 Ascorbic Acid (Gnp Vitamin C W/Doreen Hips) 1,000 Mg Tab, 1000 MG PO DAILY for 30 Days, #30 TAB Prov:GEORGETTE DUARTE MD 06/09/21 Home Meds Home medications reviewed. Current Medications Current Medications Medications (Trade) Dose Ordered Sig/Lamberto Route PRN Reason Start Time Stop Time Status Last Admin Aspirin 81 mg DAILY PO 08/02/24 10:00 Atorvastatin Calcium (Lipitor) 40 mg HS PO 08/01/24 22:00 Morphine Sulfate 2 mg Q30MP PRN IV FOR CHEST PAIN 08/01/24 15:15 08/01/24 15:18 DC Nitroglycerin (Ntrostat Sublingual) 0.4 mg Q5MINP PRN SL FOR CHEST PAIN 08/01/24 15:15 08/01/24 15:18 DC Nitroglycerin (Ntrostat Sublingual) 0.4 mg Q5MINP PRN SL FOR CHEST PAIN 08/01/24 15:15 Morphine Sulfate 2 mg Q30M PRN IV FOR CHEST PAIN 08/01/24 15:15 Review of Systems Constitutional: No symptom reported Ears, Nose, & Throat: No symptom reported Eyes: No symptom reported Neurological: No symptoms reported Pulmonary/Respiratory: Shortness of breath Cardiovascular: Palpitations Gastrointestinal: No symptom reported Genitourinary: No symptom reported Musculoskeletal: No symptom reported Skin: No symptom reported Psychiatric: No symptom reported Endocrine: No symptom reported Hematologic/Lymphatic: No symptom reported Vital Signs Vital Signs Date Time Temp Pulse Resp B/P (MAP) Pulse Ox O2 Delivery O2 Flow Rate FiO2 08/01/24 16:07 98.0 67 18 105/66 (79) 100 98.0 08/01/24 12:00 Room Air* 0 21 Physical Exam General Appearance: Cooperative. Well-developed. Well-nourished. No acute distress. Pulmonary/Respiratory: Clear, bilateral breaths sounds. Cardiovascular/Chest: Regular rate and rhythm. Peripheral Pulses: 2+ Radial (R). 2+ Radial (L). 2+ Pedal (R). 2+ Pedal (L) Abdominal Exam: Normal bowel sounds. Ankle Exam: Negative ankle edema Lower extremities: Negative lower extremity edema Neuro/Mental Status: A/OX4, coherent. Thoughts/Psych: Normal thought pattern. Appropriate mood and affect. Good judgment and insight. Appearance: No acute distress. Skin Exam: Normal inspection. Normal color. Warm and dry. Labs/Diagnostic Data Labs Test 08/01/24 15:23 08/01/24 10:48 08/01/24 10:35 08/01/24 10:30 Range/Units Troponin I High Sensitivity < 3 L </=34 ng/L White Blood Count 6.0 4.4-10.8 10^3/uL Red Blood Count 5.00 4.0-5.20 10^6/uL Hemoglobin 10.5 L 12.2-16.2 g/dL Hematocrit 33.5 L 36.0-46.0 % Mean Corpuscular Volume 67.0 L 80.0-100.0 fL Mean Corpuscular Hemoglobin 21.0 L 28.0-32.0 pg Mean Corpuscular Hemoglobin Concent 31.3 L 32.0-36.0 g/dL Red Cell Distribution Width 28.8 H 11.8-14.3 % Platelet Count 547 H 140-450 10^3/uL Mean Platelet Volume 7.2 6.9-10.8 fL Neutrophils (%) (Auto) 76.6 37.0-80.0 % Lymphocytes (%) (Auto) 17.5 10.0-50.0 % Monocytes (%) (Auto) 5.2 0.0-12.0 % Eosinophils (%) (Auto) 0.2 0.0-7.0 % Basophils (%) (Auto) 0.5 0.0-2.0 % Neutrophils # (Auto) 4.6 1.6-8.6 10 ^3/uL Lymphocytes # (Auto) 1.1 0.4-5.4 10 ^3/uL Monocytes # (Auto) 0.3 0-1.3 10 ^3/uL Eosinophils # (Auto) 0 0-0.8 10 ^3/uL Basophils # (Auto) 0 0-0.2 10 ^3/uL Nucleated Red Blood Cells 0.0 % Platelet Estimate Increased Hypochromasia (manual) Slight Anisocytosis (manual) Marked Microcytosis Marked Prothrombin Time 11.1 9.3-11.8 sec Prothrombin Time INR 1.05 0.9-1.15 Activated Partial Thromboplast Time 27.1 24.5-34.5 SEC Sodium Level 139 136-145 mmol/L Potassium Level 3.5 3.5-5.1 mmol/L Chloride Level 109 H 98-107 mmol/L Carbon Dioxide Level 22 20-31 mmol/L Anion Gap 8 5-15 Blood Urea Nitrogen 12 9-23 mg/dL Creatinine 0.73 0.550-1.02 mg/dL Glomerular Filtration Rate Calc 111 >90 mL/min BUN/Creatinine Ratio 16.4 10.0-20.0 Serum Glucose 92 74-106 mg/dL Calcium Level 10.1 8.7-10.4 mg/dL Magnesium Level 2.0 1.6-2.6 mg/dL Beta HCG, Quantitative 0.8 L 1.5-4.2 mIU/mL Urine Color Light-yellow Yellow Urine Clarity Clear Clear Urine pH 7.0 5.0-9.0 Urine Specific [place] 1.017 1.001-1.035 Urine Protein Negative Negative Urine Ketones 2+ H Negative Urine Blood 2+ H Negative /uL Urine Nitrite Negative Negative Urine Bilirubin Negative Negative Urine Urobilinogen Normal Negative mg/dL Urine Leukocyte Esterase Negative Negative /uL Urine RBC 4 0 - 4 /hpf Urine Microscopic WBC 3 0-5 /HPF Urine Squamous Epithelial Cells Few <5 /hpf Urine Bacteria None seen None Seen /hpf Urine Glucose Normal Normal mg/dL Urine Opiates Screen Neg NEGATIVE Urine Fentanyl Screen Neg NEGATIVE Urine Barbiturates Screen Neg NEGATIVE Urine Phencyclidine Screen Neg NEGATIVE Urine Amphetamines Screen Neg NEGATIVE Urine Benzodiazepines Screen Neg NEGATIVE Urine Cocaine Screen Neg NEGATIVE Urine Cannabinoids Screen Pos NEGATIVE POC Glucose 94 70-106 mg/dl Assessment Palpitations, rule out cardiac arrhythmia Rule out structural heart disease History of systemic lupus erythematosus History of iron-deficiency anemia Asthma Marijuana use Anxiety Plan/Recommendation We will continue with the following plan/recommendations (Dr. Garcia): Case discussed with . We will proceed with obtaining a transthoracic echocardiogram to evaluate cardiac function. 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 Continue with close cardiac surveillance and monitor for any arrhythmias. We will order thyroid panel to assess thyroid function. Monitor and replete electrolytes as needed. Thank you for allowing us to care for this patient. Please call with any questions or concerns. Critical care time spent: 41 minutes This medical document was created using an electronic medical record system with voice recognition software and computerized dictation system. Although this document has been carefully reviewed, there might still be some phonetic and typographical errors. Occasional wrong-word or ``sound-alike substitutions may have occurred due to the inherent limitations of voice recognition software. These areas are purely typographical due to imperfections of the software programs and do not reflect any compromise in the patient's medical care. Please read the chart carefully and recognize, using context, where these substitutions have occurred. Plan discussed with: Patient NYHA Physical activity limitations: NA Date of Service: Aug 01, 2024 Billing Provider: PRUDENCE GONZALES Cardiology Common Codes: 69985-[id number] INP/OBS CARE (High) Cardiology Consultation Codes: [id number] CONSULT <45MIN PRUDENCE GONZALES Aug 01, 2024 16:31
[2024-08-01 17:14] LABS: Triglycerides 45 mg/dL (< 150)
[2024-08-01 17:15] LABS: Cholesterol 191 mg/dL (< 200)
[2024-08-01 17:16] LABS: HDL Cholesterol 61 mg/dL (40-59); LDL Cholesterol 123 mg/dL (< 100)
[2024-08-01 17:36] VITALS: BP 114/64; PULSE 73; RESP 17; TEMP 98.2; O2SAT 100
[2024-08-01 18:43] LABS: Free T3 3.53 pg/mL (2.3-4.2)
[2024-08-01 18:44] LABS: Free T4 (Free Thyroxine) 1.28 ng/dL (0.89-1.76)
[2024-08-01 20:00] VITALS: PULSE 75
[2024-08-01 21:00] VITALS: BP 107/64; PULSE 75; RESP 17; TEMP 98.2; O2SAT 100
[2024-08-01] MEDS: CYCLOBENZAPRINE HCL 10 MG TAB PO SCH (22:28)
[2024-08-01] MEDS: ATORVASTATIN 20 MG TAB PO SCH (22:28)
[2024-08-02 01:00] VITALS: BP 98/50; PULSE 69; RESP 18; TEMP 98; O2SAT 99
[2024-08-02 05:00] VITALS: BP 99/67; PULSE 63; RESP 18; TEMP 98.1; O2SAT 100
[2024-08-02 05:29] LABS: Basophils # (auto) 0 10 ^3/uL (0-0.2); Monocytes # (auto) 0.4 10 ^3/uL (0-1.3); Neutrophils # (auto) 2.7 10 ^3/uL (1.6-8.6)
[2024-08-02 05:30] LABS: Basophils % (auto) 0.5 % (0.0-2.0); Eosinophils # (auto) 0.1 10 ^3/uL (0-0.8); Eosinophils % (auto) 2.9 % (0.0-7.0); Hematocrit 32.4 % (36.0-46.0); Hemoglobin 10.1 g/dL (12.2-16.2); Lymphocytes # (auto) 1.9 10 ^3/uL (0.4-5.4); Lymphocytes % (auto) 36.5 % (10.0-50.0); Mean Corpuscular Hemoglobin 21.1 pg (28.0-32.0); Mean Corpuscular Hgb Conc. 31.2 g/dL (32.0-36.0); Mean Corpuscular Volume 67.7 fL (80.0-100.0); Monocytes % (auto) 7.1 % (0.0-12.0); Nucleated Red Blood Cells % 0.1 %; Platelet Count (auto) 490 10^3/uL (140-450); Red Cell Distribution Width 28.2 % (11.8-14.3); White Blood Cell 5.1 10^3/uL (4.4-10.8)
[2024-08-02 05:33] LABS: Potassium 3.6 mmol/L (3.5-5.1); Sodium 141 mmol/L (136-145)
[2024-08-02 05:34] LABS: Anion Gap 6 (5-15); Calcium 9.6 mg/dL (8.7-10.4); Carbon Dioxide 26 mmol/L (20-31)
[2024-08-02 05:35] LABS: Chloride 109 mmol/L (98-107)
[2024-08-02 05:39] LABS: BUN/Creatinine Ratio 19.5 (10.0-20.0); Blood Urea Nitrogen 15 mg/dL (9-23); Glucose 88 mg/dL (74-106); Triglycerides 49 mg/dL (< 150)
[2024-08-02 05:40] LABS: Magnesium 2.1 mg/dL (1.6-2.6)
[2024-08-02 05:41] LABS: Cholesterol 177 mg/dL (< 200); HDL Cholesterol 58 mg/dL (40-59)
[2024-08-02 05:54] LABS: LDL Cholesterol 112 mg/dL (< 100)
[2024-08-02 06:40] LABS: Anisocytosis Moderate; Hypochromia Marked; Ovalocytes FEW; Platelet Estimate Increased; Target Cell FEW
[2024-08-02 08:00] VITALS: PULSE 61
[2024-08-02 09:00] VITALS: BP 93/60; PULSE 71; RESP 20; TEMP 98; O2SAT 99
[2024-08-02] MEDS: [UNRECOGNIZED DRUG - OTHER] PO SCH (10:00)
[2024-08-02] MEDS: ROSE HIPS PO SCH (10:00)
--- NOTE | 2024-08-02 10:06 | ECG ---
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
[2024-08-02] MEDS: ZINC SULFATE 220mg CAP or TAB PO SCH (10:22)
[2024-08-02] MEDS: FERROUS SULFATE 325mg EC TAB PO SCH (10:22)
[2024-08-02] MEDS: ASPirin 81 mg TAB PO SCH (10:23)
[2024-08-02] MEDS: CHOLECALCIFEROL (VITD3) 1,000UNIT=25mCg TAB PO SCH (10:23)
--- NOTE | 2024-08-02 11:18 | DVHPN2 ---
Consult Progress Note Subjective Other Systems: Patient in normal sinus rhythm on conveyor monitor at time of assessment. Patient noted to have events of sinus bradycardia with occasional PACs. She denies any cardiac symptoms overnight or today. Objective vital signs Vital Sign Date Time Temp Pulse Resp B/P (MAP) Pulse Ox O2 Delivery O2 Flow Rate FiO2 08/02/24 09:00 98.0 71 20 93/60 (71) 99 98.0 08/02/24 08:00 Room Air* 0 21 Total Intake and Output 08/01/24 08/01/24 08/02/24 15:00 23:00 07:00 Intake Total 750 ml 1600 ml Balance 750 ml 1600 ml medications Current Medications Medications Dose Ordered Sig/Lamberto Route Start Time Stop Time Status Last Admin Dose Admin Aspirin 81 mg DAILY PO 08/02/24 10:00 08/02/24 10:23 81 MG Atorvastatin Calcium 40 mg HS PO 08/01/24 22:00 08/01/24 22:28 40 MG Nitroglycerin 0.4 mg Q5MINP PRN SL 08/01/24 15:15 Morphine Sulfate 2 mg Q30M PRN IV 08/01/24 15:15 Ferrous Sulfate 325 mg DAILY PO 08/02/24 10:00 08/02/24 10:22 325 MG Patient Own Medication 1,000 mg DAILY PO 08/02/24 10:00 Cholecalciferol 5,000 unit DAILY PO 08/02/24 10:00 08/02/24 10:23 5,000 UNIT Cyclobenzaprine HCl 5 mg TID PO 08/01/24 22:00 08/02/24 06:06 5 MG Zinc Sulfate 220 mg DAILY PO 08/02/24 10:00 08/02/24 10:22 220 MG Examination: GENERAL:Normal, LUNGS:Normal, CVS:Normal, NEURO:Normal laboratory and microbiology Laboratory Tests 08/02/24 04:58 Test 08/02/24 04:58 Range/Units Serum Glucose 88 74-106 mg/dL Problem List/Assessment/Plan Problem List/Assessment/Plan Palpitations, rule out cardiac arrhythmia Hyperlipidemia, newly diagnosed History of systemic lupus erythematosus History of iron-deficiency anemia Asthma Marijuana use Anxiety Plan/Recommendation (Dr. Garcia): Case discussed with . Transthoracic echocardiogram reveals EF 65%. site monitor reviewed, no significant events noted. Monitor and replete electrolytes as needed. There is no further inpatient cardiac workup indicated at this time. We will recommend for the patient to follow up with Cardiology in the outpatient setting within 1-2 weeks for an event monitor. Thank you for allowing us to care for this patient. Please call with any questions or concerns. This medical document was created using an electronic medical record system with voice recognition software and computerized dictation system. Although this document has been carefully reviewed, there might still be some phonetic and typographical errors. Occasional wrong-word or ``sound-alike substitutions may have occurred due to the inherent limitations of voice recognition software. These areas are purely typographical due to imperfections of the software programs and do not reflect any compromise in the patient's medical care. Please read the chart carefully and recognize, using context, where these substitutions have occurred. Plan discussed with: Patient Date of Service: Aug 02, 2024 Billing Provider: PRUDENCE GONZALES Common Visit Codes: [id number] INP/OBS CARE(HIGH) PRUDENCE GONZALES Aug 02, 2024 11:18
--- NOTE | 2024-08-02 12:23 | DVHSR ---
APPROVED REPORT EXAM: Two-dimensional and M-mode echocardiogram with Doppler and color Doppler. Blood Pressure: 100/57 mmHg INDICATION Chest Pain RISK FACTORS Height: 60, Weight: 109 DIMENSIONS LVDd4.3 (3.8-5.7cm)LA (2D)3.4 (1.9-4.0cm)Aortic Root3.3 (2.0-3.7cm) LVDs2.6 (2.5-4.0cm)LA (MM) (1.9-4.0cm)Aortic Cusp Exc2.0 (1.5-2.0cm) EF (%) 70.0 (55-70%)Rt. Atrium2.9 (1.9-4.0cm)Asc. Aorta cm IVSd0.7 (0.7-1.1cm)RV (D) (1.8-2.4cm) PWd0.8 (0.7-1.1cm) Mitral Valve MitralMitral Stenosis E wave0.89m/sMV Mean GR.mmHg A wave0.53m/sMV Peak GR.mmHg E/A ratio1.72D MVAcm2 DECEL [id number] 1/2 [id number] IVRTmsDop MVA2.54cm2 Aortic Valve Aortic ValveAortic Stenosis V11.05m/Gavin Mean GR.6mmHg V21.74m/Gavin Peak GR.12mmHg LVOT Diameter2.1 (1.8-2.4cm)Doppler AVA2.09cm2 Pulmonic Valve V21.10m/s Tricuspid Valve TR Velocity1.98m/s [id number] Conclusion Technically good study. Sinus rhythm. Normal chamber sizes. Valves are normal. Left ventricular systolic performance is preserved at 65% with normal RV function. Doppler reveals no significant abnormalities. No significant regurgitant jets. No pericardial effusion masses or vegetations
[2024-08-02 13:00] VITALS: BP 105/75; PULSE 74; RESP 20; TEMP 98; O2SAT 97
--- NOTE | 2024-08-02 13:25 | DVH ---
EXAMINATION: MRI BRAIN HEAD WO CONTRAST INDICATION: vasculitis COMPARISON: None TECHNIQUE: Multiplanar, multisequence magnetic resonance imaging of the brain was performed without t he use of intravenous contrast. FINDINGS: There is no restricted diffusion. The park and white matter signal is appropriate. There is no eviden ce of hemorrhage, mass, mass effect or midline shift. There is no hydrocephalus or extra-axial fluid collection. The visualized intracranial vasculature demonstrates appropriate flow-voids. The sagittal midline structures appear unremarkable. The craniocervical junction is within normal limits. The lorena varium demonstrates normal marrow signal. There is trace fluid in the right mastoid air cells. Parana misty sinuses are clear. IMPRESSION: 1. Unremarkable noncontrast MRI brain. 2. Trace fluid in the right mastoid air cells. HS:Y
[2024-08-02] MEDS: SODIUM CHLORIDE 0.9% 1,000 ML IV ONE (15:47)
--- NOTE | 2024-08-02 16:45 | DVHDS2 ---
Discharge Summary Date of Admission Aug 01, 2024 at 15:06 Date of Discharge: Aug 02, 2024 Labs/Diagnostic Data: Laboratory Results Test 08/02/24 04:58 08/01/24 17:21 08/01/24 10:48 08/01/24 10:35 White Blood Count 5.1 10^3/uL (4.4-10.8) Red Blood Count 4.80 10^6/uL (4.0-5.20) Hemoglobin 10.1 g/dL (12.2-16.2) Hematocrit 32.4 % (36.0-46.0) Mean Corpuscular Volume 67.7 fL (80.0-100.0) Mean Corpuscular Hemoglobin 21.1 pg (28.0-32.0) Mean Corpuscular Hemoglobin Concent 31.2 g/dL (32.0-36.0) Red Cell Distribution Width 28.2 % (11.8-14.3) Platelet Count 490 10^3/uL (140-450) Mean Platelet Volume 7.4 fL (6.9-10.8) Neutrophils (%) (Auto) 53.0 % (37.0-80.0) Lymphocytes (%) (Auto) 36.5 % (10.0-50.0) Monocytes (%) (Auto) 7.1 % (0.0-12.0) Eosinophils (%) (Auto) 2.9 % (0.0-7.0) Basophils (%) (Auto) 0.5 % (0.0-2.0) Neutrophils # (Auto) 2.7 10 ^3/uL (1.6-8.6) Lymphocytes # (Auto) 1.9 10 ^3/uL (0.4-5.4) Monocytes # (Auto) 0.4 10 ^3/uL (0-1.3) Eosinophils # (Auto) 0.1 10 ^3/uL (0-0.8) Basophils # (Auto) 0 10 ^3/uL (0-0.2) Nucleated Red Blood Cells 0.1 % Platelet Estimate Increased Hypochromasia (manual) Marked Anisocytosis (manual) Moderate Microcytosis Marked Target Cells Few Ovalocytes Few Sodium Level 141 mmol/L (136-145) Potassium Level 3.6 mmol/L (3.5-5.1) Chloride Level 109 mmol/L (98-107) Carbon Dioxide Level 26 mmol/L (20-31) Anion Gap 6 (5-15) Blood Urea Nitrogen 15 mg/dL (9-23) Creatinine 0.77 mg/dL (0.550-1.02) Glomerular Filtration Rate Calc 104 mL/min (>90) BUN/Creatinine Ratio 19.5 (10.0-20.0) Serum Glucose 88 mg/dL (74-106) Calcium Level 9.6 mg/dL (8.7-10.4) Magnesium Level 2.1 mg/dL (1.6-2.6) Triglycerides Level 49 mg/dL (< 150) Cholesterol Level 177 mg/dL (< 200) LDL Cholesterol 112 mg/dL (< 100) HDL Cholesterol 58 mg/dL (40-59) Troponin I High Sensitivity < 3 ng/L (</=34) Prothrombin Time 11.1 sec (9.3-11.8) Prothrombin Time INR 1.05 (0.9-1.15) Activated Partial Thromboplast Time 27.1 SEC (24.5-34.5) Hemoglobin A1c 4.7 % A1C (<5.7) Thyroid Stimulating Hormone (TSH) 0.44 uIU/mL (0.55-4.78) Free Thyroxine (T4) Calculated 1.28 ng/dL (0.89-1.76) Free Triiodothyronine (T3) pg/mL 3.53 pg/mL (2.3-4.2) Beta HCG, Quantitative 0.8 mIU/mL (1.5-4.2) Urine Color Light-yellow (Yellow) Urine Clarity Clear (Clear) Urine pH 7.0 (5.0-9.0) Urine Specific [place] 1.017 (1.001-1.035) Urine Protein Negative (Negative) Urine Ketones 2+ (Negative) Urine Blood 2+ /uL (Negative) Urine Nitrite Negative (Negative) Urine Bilirubin Negative (Negative) Urine Urobilinogen Normal mg/dL (Negative) Urine Leukocyte Esterase Negative /uL (Negative) Urine RBC 4 /hpf (0 - 4) Urine Microscopic WBC 3 /HPF (0-5) Urine Squamous Epithelial Cells Few /hpf (<5) Urine Bacteria None seen /hpf (None Seen) Urine Glucose Normal mg/dL (Normal) Urine Opiates Screen Neg (NEGATIVE) Urine Fentanyl Screen Neg (NEGATIVE) Urine Barbiturates Screen Neg (NEGATIVE) Urine Phencyclidine Screen Neg (NEGATIVE) Urine Amphetamines Screen Neg (NEGATIVE) Urine Benzodiazepines Screen Neg (NEGATIVE) Urine Cocaine Screen Neg (NEGATIVE) Urine Cannabinoids Screen Pos (NEGATIVE) Test 08/01/24 10:30 POC Glucose 94 mg/dl (70-106) Other Laboratory Tests 08/02/24 04:58 Brief Hx & Hospital Course: Stella Hoffman is a 34-year-old female with past medical history of asthma, lupus, anemia, anxiety, ovarian cysts, left kidney stones, renal stent over 10 years ago those placed, , lithotripsy at [facility] who presents to the ED with shortness of breath with palpitations, dizziness, weakness, nausea, right eye twitching, and right hand numbness. Patient reports that she typically gets anemic and then her heart rate this morning when she was trying to get up from the couch to the kitchen was in the 130s. Patient denies any chest pain, fever, chills, recent trauma or injury, abdominal pain, vomiting, or diarrhea. Patient does report that she uses marijuana. seen and cleared by cardio. MRI brain wnl. HINTS exam negative patient received 1L iv bolus with improvement in dizziness. stable to dc home. 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 Condition at Discharge: Good Final Diagnosis/Problems List dizziness likely dehydration Palpitations, rule out cardiac arrhythmia Hyperlipidemia, newly diagnosed History of systemic lupus erythematosus History of iron-deficiency anemia Asthma Marijuana use Anxiety Discharge Disposition: Home Discharge Instruct/Medications Diet: Regular Activity: Light activity Follow Up/Referral: cardio for event monitor 55 Discharge Statement: "Patient was advised to return to the ER or call 911 if any headaches, dizziness, shortness of breath, chest pain, abdominal pain, bleeding, fevers, or worsening of medical condition. Patient was counseled about treatment plan, medications, possible side effects, patientverbalized understanding. All questions were answered to the best of my ability. This discharge took greater then 30 minutes in planning, reviewing documentation, counseling the patient, and discussing with other team members." ASSESSMENT ASSESSMENT Assessment dizziness likely dehydration palpitation Date of Service: Aug 02, 2024 Billing Provider: TEOFILO DUNCAN MD Common Visit Codes: 41469-IHR/OBS DISCH DAY >30min TEOFILO DUNCAN MD Aug 02, 2024 16:45
[2024-08-02 17:02] VITALS: BP 104/59; PULSE 65; RESP 18; TEMP 98.1; O2SAT 100
== END 2024-08-02 17:05 | disposition home or self-care (01) | DRG 422 ==
LOC: ER 10:03 → OVERFLOW 15:06 → TELE-CENTR 15:47 → TELE-WESTW 08-02 14:45
PROVIDERS: ADMIT Student in an Organized Health Care Education/Training Program; ATTEND Student in an Organized Health Care Education/Training Program
DX: E86.0 Dehydration (principal); M32.9 Systemic lupus erythematosus, unspecified; D64.9 Anemia, unspecified; J45.909 Unspecified asthma, uncomplicated; F41.9 Anxiety disorder, unspecified; F12.90 Cannabis use, unspecified, uncomplicated; E78.5 Hyperlipidemia, unspecified; Z87.442 Personal history of urinary calculi; Z98.891 History of uterine scar from previous surgery; Z81.3 Family history of other psychoactive substance abuse and dependence; Z63.72 Alcoholism and drug addiction in family
CPT/HCPCS: 36415; 70551; 71046; 80048; 80061; 80307; 81001; 82962; 83036; 83735; 84439; 84443; 84481; 84484; 84702; 85025; 85610; 85730; 86850; 86900; 86901; 93005; 93306; G0378

== ENCOUNTER 2024-12-03 09:15 | Emergency (ER) | payer MEDICAID ==
[~2024-12-03] VITALS: Ht 152.4 cm; Wt 48.9 kg
[2024-12-03 09:18] VITALS: TEMP 98.4
[2024-12-03 10:34] VITALS: BP 114/66; PULSE 88; RESP 18; O2SAT 98
--- NOTE | 2024-12-03 10:47 | ED.PDOC ---
Musculoskeletal HPI Comments This is a 34 year old female presenting to the ED with chief complaint of right shoulder pain. Patient reports that she started to experience spontaneous right shoulder/upper back pain this morning since last night. Patient relays that she took ibuprofen 800mg at 4am with minimal relief noted. Patient states she has hi story of Lupus, not sure if she is experiencing a flare up. Patient notes she is unable to move her right arm without pain and breathing/movement makes her pain worse. Denies fevers chills night sweats nausea vomiting redness around the shoulder Denies previous surgeries to the shoulder or significant injury Numbness/tingling down the arm Denies changes, shortness of breath Chief Complaint: Rib Pain Time Seen by MD: 10:45 Primary Care Provider: TEJA Reviewed Notes: Nurses Notes, Medications, Allergies Allergies: Coded Allergies: NO KNOWN ALLERGIES (Unverified , 08/16/11) Home Meds Active Scripts Cyclobenzaprine Hcl (Cyclobenzaprine Hcl) 5 Mg Tab, 1 TAB PO QHSP PRN for 10 Days, #10 TAB 0 Refills Prov:SHU FRYE [employer] 12/03/24 Ibuprofen Micronized (Ibuprofen) 800 Mg Tab, 800 MG PO TIDPRN PRN for 10 Days, #30 TAB 0 Refills Prov:SHU FRYE [employer] 12/03/24 Methylprednisolone (Medrol Dosepak) 4 Mg Julio, 4 MG PO UD for 7 Days, #21 TAB 0 Refills UAD Prov:SHU FRYE [employer] 12/03/24 Ferrous Sulfate (FERROUS SULFATE) 325 Mg Tb, 1 TAB PO DAILY for 30 Days, #15 TAB 0 Refills To be taken every other day, Monday, Monday, Monday. Prov:YUSUF VASQUEZ 07/01/24 Cholecalciferol (VITAMIN D) 5,000 Unit Tab, 5000 UNIT OR DAILY for 30 Days, #30 TAB 0 Refills Prov:YUSUF VASQUEZ 07/01/24 Prednisone (Prednisone) 20 Mg Tab, 20 MG PO DAILY for 3 Days, #3 MG 0 Refills Prov:YUSUF VASQUEZ 07/01/24 Prednisone (Prednisone) 10 Mg Tab, 10 MG PO DAILY for 3 Days, #3 MG 0 Refills Prov:YUSUF VASQUEZ 07/01/24 Prednisone (Prednisone) 20 Mg Tab, 40 MG PO DAILY for 7 Days, #7 MG 0 Refills Prov:YUSUF VASQUEZ RESIDENT 07/01/24 Cyclobenzaprine Hcl (Cyclobenzaprine Hcl) 5 Mg Tab, 1 TAB PO TID, #15 TAB Prov:NGHIA THURMAN PAC 04/16/24 Zinc Sulfate (Zinc Sulfate) 220 Mg Tab, 220 MG PO DAILY for 14 Days, #14 TAB Prov:GEORGETTE DUARTE MD 06/09/21 Ascorbic Acid (Gnp Vitamin C W/Doreen Hips) 1,000 Mg Tab, 1000 MG PO DAILY for 30 Days, #30 TAB Prov:GEORGETTE DUARTE MD 06/09/21 Information Source: Patient Mode of Arrival: Ambulatory Location: Right Extremity Location: Back, Shoulder Timing: Hours Prehospital treatment: None Severity: Moderate Able to Move Extremity: Yes Pain: Moderate Mechanism: Spontaneous Circumstances: Spontaneous Onset of Symptoms: Spontaneous Symptoms: Pain DVT Risk Factors: NONE Past Medical History PAST MEDICAL HISTORY: Anxiety, Asthma, Kidney Stones Past Medical History (Other): Lupus 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: , [employer] History: Ovarian Cysts Family History Family History: No family hx of Cancer Social History Smoker: Non-Smoker Alcohol: Denies ETOH Use Drugs: Marijuana Lives In: Home Constitutional: denies: chills, diaphoresis, fatigue, fever, malaise, sweats, weakness, others EENTM: denies: blurred vision, double vision, ear bleeding, ear discharge, ear drainage, ear pain, ear ringing, eye pain, eye redness, hearing loss, mouth pain, mouth swelling, nasal discharge, nose bleeding, nose congestion, nose pain, photophobia, tearing, throat pain, throat swelling, voice changes, others Respiratory: denies: cough, hemoptysis, orthopnea, SOB at rest, shortness of breath, SOB with excertion, stridor, wheezing, others Cardiovascular: denies: chest pain, dizzy spells, diaphoresis, Dyspnea on e xertion, edema, irregular heart beat, left arm pain, lightheadedness, palpitations, PND, syncope, others Gastrointestinal: denies: abdomen distended, abdominal pain, blood streaked bowels, constipated, diarrhea, dysphagia, difficulty swallowing, hematemesis, melena, nausea, poor appetite, poor fluid intake, rectal bleeding, rectal pain, vomiting, others Genitourinary: denies: abnormal vagina bleeding, burning, dyspareunia, dysuria, flank pain, frequency, hematuria, incontinence, pain, , vagina discharge, urgency, others Neurological: denies: dizziness, fainting, headache, left sided numbness, left sided weakness, numbness, paresthesia, pre-existing deficit, right sided numbness, right sided weakness, seizure, speech problems, tingling, tremors, weakness, others Musculoskeletal: reports: others (Rt shoulder and back pain); denies: back pain, gout, joint pain, joint swelling, muscle pain, muscle stiffness, neck pain Integumetry: denies: bruises, change in color, change in hair/nails, dryness, laceration, lesions, lumps, rash, wounds, others Allergic/Immunocompromised: denies: Difficulty Healing, Frequent Infections, Hives, Itching, others Hematologic/Lymphatic: denies: anemia, blood clots, easy bleeding, easy bruising, swollen glands, others Endocrine: denies: excessive hunger, excessive sweating, excessive thirst, excessive urination, flushing, intolerance to cold, intolerance to heat, unexplained weight gain, unexplained weight loss, others Psychiatric: denies: anxiety, bipolar disorder, depression, hopeless, panic disorder, schizophrenia, sleepless, suicidal, others All Other Systems: Reviewed and Negative Physical Exam General Appearance: No Apparent Distress, Normal HEENT: Normal ENT Inspection, Pharynx Normal, TMs Normal Neck: Full Range of Motion, Non-Tender, Normal, Normal Inspection Respiratory: Chest Non-Tender, Lungs Clear, No Accessory Muscle Use, No Respiratory Distress, Normal Breath Sounds Cardiovascular: No Edema, No JVD, No Murmur, No Gallop, Normal Peripheral Pulses, Regular Rate/Rhythm Breast Exam: Deferred Gastrointestinal: No Organomegaly, Non Tender, No Pulsatile Mass, Normal Bowel Sounds, Soft Genitalia: Deferred Pelvic: Deferred Rectal: Deferred Extremities: No calf tenderness, Normal capillary refill, Normal inspection, Normal range of motion, Non-tender, No pedal edema Musculoskeletal : Location: Right Extremity Location: Shoulder (Right Shoulder: No gross abnormality on inspection. No shoulder drop visible. No clavicular tenderness on palpation. Palpation tenderness to coracoid process and acromion process. No scapular, supraspinatus, infraspinatus tenderness to touch. Limited flexion passive movement due to pain. Pain with abduction. Apley test positive. Fan test positive. Empty can test positive. Spurling test positive.) Apperance: Normal Neurologic: Alert, marine reporter II-XII nml as Tested, No Motor Deficits, Normal Affect, Normal Mood, No Sensory Deficits Cerebellar Function: Normal Reflexes: Normal Skin: Dry, Normal Color, Warm Lymphatic: No Adenopathy Was a procedure done? Was a procedure done?: No Differential Diagnosis EXT Differential Diagnosis: Fracture, Sprain, Contusion, Strain X-Ray, Labs, Meds, VS Vital Signs Date Time Temp Pulse Resp B/P (MAP) Pulse Ox O2 Delivery O2 Flow Rate FiO2 12/03/24 10:34 88 18 98 Room Air 12/03/24 10:34 88 18 114/66 (82) 98 12/03/24 09:18 98.4 91 20 105/68 98 98.4 Lab Test 12/03/24 10:49 12/03/24 10:32 Range/Units White Blood Count 5.6 4.4-10.8 10^3/uL Red Blood Count 4.19 4.0-5.20 10^6/uL Hemoglobin 10.0 L 12.2-16.2 g/dL Hematocrit 30.8 L 36.0-46.0 % Mean Corpuscular Volume 73.6 L 80.0-100.0 fL Mean Corpuscular Hemoglobin 23.9 L 28.0-32.0 pg Mean Corpuscular Hemoglobin Concent 32.5 32.0-36.0 g/dL Red Cell Distribution Width 20.3 H 11.8-14.3 % Platelet Count 454 H 140-450 10^3/uL Mean Platelet Volume 7.1 6.9-10.8 fL Neutrophils (%) (Auto) 68.7 37.0-80.0 % Lymphocytes (%) (Auto) 23.2 10.0-50.0 % Monocytes (%) (Auto) 6.6 0.0-12.0 % Eosinophils (%) (Auto) 0.9 0.0-7.0 % Basophils (%) (Auto) 0.6 0.0-2.0 % Neutrophils # (Auto) 3.9 1.6-8.6 10 ^3/uL Lymphocytes # (Auto) 1.3 0.4-5.4 10 ^3/uL Monocytes # (Auto) 0.4 0-1.3 10 ^3/uL Eosinophils # (Auto) 0.1 0-0.8 10 ^3/uL Basophils # (Auto) 0 0-0.2 10 ^3/uL Nucleated Red Blood Cells 0.0 % Sodium Level 142 136-145 mmol/L Potassium Level 3.8 3.5-5.1 mmol/L Chloride Level 110 H 98-107 mmol/L Carbon Dioxide Level 25 20-31 mmol/L Anion Gap 7 5-15 Blood Urea Nitrogen 10 9-23 mg/dL Creatinine 0.71 0.550-1.02 mg/dL Glomerular Filtration Rate Calc 114 >90 mL/min BUN/Creatinine Ratio 14.1 10.0-20.0 Serum Glucose 87 74-106 mg/dL Calcium Level 9.2 8.7-10.4 mg/dL Urine Color Yellow Yellow Urine Clarity Turbid H Clear Urine pH 6.0 5.0-9.0 Urine Specific [place] 1.022 1.001-1.035 Urine Protein Negative Negative Urine Ketones Trace Negative Urine Blood 1+ H Negative /uL Urine Nitrite Negative Negative Urine Bilirubin Negative Negative Urine Urobilinogen Normal Negative mg/dL Urine Leukocyte Esterase Negative Negative /uL Urine RBC 22 0 - 4 /hpf Urine Microscopic WBC 3 0-5 /HPF Urine Squamous Epithelial Cells Few <5 /hpf Urine Bacteria Few H None Seen /hpf Urine Mucus Few None Seen Urine Glucose Normal Normal mg/dL Urine Test Negative Negative Current Medications Medications (Trade) Dose Ordered Sig/Lamberto Route Start Time Stop Time Status Last Admin Acetaminophen/ Hydrocodone Bitart ([place] 7.5/325MG Tab) 1 tab ONCE ONCE PO 12/03/24 10:45 12/03/24 10:46 DC 12/03/24 10:54 Methylprednisolone Sodium Succinate (Solu Medrol) 125 mg ONCE ONCE IM 12/03/24 10:45 12/03/24 10:46 DC 12/03/24 10:53 X-Ray, Labs, Meds, VS Comment This is a 34 year old female presenting to the ED with chief complaint of right shoulder/back pain Patient arrives alert and oriented, ABC's intact, afebrile, vital signs stable, saturating well in room air Peripheral IV insertion+ labs were ordered. CBC was ordered to exclude anemia, blood loss, or infection. BMP was ordered to exclude electrolyte abnormalities, renal failure, dehydration, hyperglycemia Urinalysis was ordered to rule out UTI or hematuria. Preg urine was ordered. + neck pain radiating to the upper extremity ED Workup: Defer C-Spine imaging given negative by NEXUS criteria Given History, Exam the patient appears to have a cervical radiculopathy. Patient appears to be low risk for complications or other emergent conditions such as anginal equivalent, nicole cervical instability, arterial dissection, osteomyelitis, epidural abscess, central cord syndrome, c-spine fracture, CVA, other spinal emergencies Rx: NSAIDs, outpatient physical therapy evaluation and recommendation for home exercises in the interim Disposition: Discharge. The patient has been given strict return precautions and understands the need to follow up within 48 hours with their primary care provider Patient was given: Solu-Medrol 125mg IM, [place] 7.5/10mg PO. Tolerated medications with no adverse reaction On reevaluation, patient had symptomatic improvement. Patient is stable for discharge at this time. External notes reviewed. Test results and diagnostic imaging interpreted. All diagnostic findings, discharge care, education and instructions provided Follow-up with PCP in 2 to 3 days Patient verbalized understanding and agreed to treatment plan Vital signs stable, afebrile, no acute distress noted Patient ambulatory with strong steady gait Advised to return precautions for any new or worsening symptoms, return to ER immediately for re-evaluation Patient is aware that the purpose of this visit was for an acute medical emergency requiring emergent stabilization. Chronic conditions, including malignancies have not been ruled out. Patient is instructed to follow up with PCP as directed and discharge instructions for continued care and workup. If unable to arrange follow-up, patient is to return to the emergency department for reassessment. Patient (parent or legal guardian if applicable) was given verbal and written discharge instructions and acknowledges understanding. Additional MDM Review of External, Non-ED records: External records reviewed. Discussion with independent historian (EMS, family) history obtained from the patient/parents (if applicable) at bedside Chronic conditions affecting care: None Social determinants of health affecting care: None Consideration of admission (observation or admission): I considered escalation of care to admission for this patient, however given the reassuring workup, the patient is safe for outpatient management. Time of 1ST Reevaluation: 11:00 Reevaluation 1ST: Unchanged Patient Education/Counseling: Diagnosis, Treatment Family Education/Counseling: No Family Present Departure 1 Departure Time of Disposition: 11:29 Impression: Primary Impression: IRON DEFICIENCY ANEMIA, UNSPECIFIED Additional Impression: Cervical radiculopathy Disposition: HOME / SELF CARE / HOMELESS Condition: Fair e-Prescriptions Cyclobenzaprine Hcl (Cyclobenzaprine Hcl) 5 Mg Tab 1 TAB PO QHSP PRN for 10 Days, #10 TAB 0 Refills Prov: SHU FRYE NP 12/03/24 Ibuprofen Micronized (Ibuprofen) 800 Mg Tab 800 MG PO TIDPRN PRN for 10 Days, #30 TAB 0 Refills Prov: SHU FRYE NP 12/03/24 Methylprednisolone (Medrol Dosepak) 4 Mg Julio 4 MG PO UD for 7 Days, #21 TAB 0 Refills UAD Prov: SHU FRYE NP 12/03/24 Critical Care Note Critical Care Time?: No Stability Stability form required: No Heart Score Heart Score: Heart Score Response (Comments) Value History N/A 0 EKG N/A 0 Age N/A 0 Risk Factors N/A 0 Troponin N/A 0 Total 0 I personally scribed for SHU FRYE NP ([email or web address]) on 12/03/24 at 10:47. Elec tronically submitted by Travis Gasca ([email or web address]). SHU FRYE NP Dec 03, 2024 10:47
[2024-12-03] MEDS: methylPREDNISolone SOD SUCC 125 MG/2 ML VL IM ONE (10:53)
[2024-12-03] MEDS: HYDROcodone-ACET 7.5/325MG TAB PO ONE (10:54)
[2024-12-03 10:56] LABS: Hemoglobin 10.0 g/dL (12.2-16.2); Nucleated Red Blood Cells % 0.0 %
[2024-12-03 10:57] LABS: Hematocrit 30.8 % (36.0-46.0); Mean Corpuscular Hemoglobin 23.9 pg (28.0-32.0); Mean Corpuscular Volume 73.6 fL (80.0-100.0)
[2024-12-03 11:07] LABS: Potassium 3.8 mmol/L (3.5-5.1); Sodium 142 mmol/L (136-145)
[2024-12-03 11:08] LABS: Anion Gap 7 (5-15); Calcium 9.2 mg/dL (8.7-10.4); Carbon Dioxide 25 mmol/L (20-31)
[2024-12-03 11:13] LABS: BUN/Creatinine Ratio 14.1 (10.0-20.0); Blood Urea Nitrogen 10 mg/dL (9-23); Glucose 87 mg/dL (74-106)
[2024-12-03 11:14] LABS: Chloride 110 mmol/L (98-107)
[2024-12-03 11:16] LABS: Urine Protein, UAD Negative (Negative)
[2024-12-03] MEDS ORDERED: CYCL-837 PO (11:34)
[2024-12-03] MEDS ORDERED: IBUP-1455 PO (11:34)
[2024-12-03] MEDS ORDERED: METH4PAK PO (11:34)
== END 2024-12-03 11:47 | disposition home or self-care (01) ==
LOC: ER 09:15
DX: D50.9 Iron deficiency anemia, unspecified (principal); M54.12 Radiculopathy, cervical region; F12.90 Cannabis use, unspecified, uncomplicated; J45.909 Unspecified asthma, uncomplicated; F41.9 Anxiety disorder, unspecified; Z98.890 Other specified postprocedural states; Z87.442 Personal history of urinary calculi; Z79.52 Long term (current) use of systemic steroids; Z79.899 Other long term (current) drug therapy
CPT/HCPCS: 36415; 80048; 81001; 81025; 85025; 96372; 99283; J2919

== ENCOUNTER 2025-04-16 23:30 | Emergency (ER) | payer MEDICAID ==
[~2025-04-16] VITALS: Ht 152.4 cm; Wt 51.7 kg
[~2025-04-16 23:30] MED LIST changes: +IBUP-1455 PO; +METH4PAK PO
[2025-04-16 23:31] VITALS: BP 117/82; PULSE 82; RESP 16; TEMP 98.2; O2SAT 100
[2025-04-17 00:31] LABS: Chloride 106 mmol/L (98-107); Potassium 3.7 mmol/L (3.5-5.1); Sodium 139 mmol/L (136-145)
[2025-04-17 00:32] LABS: Anion Gap 7 (5-15); Carbon Dioxide 26 mmol/L (20-31)
[2025-04-17 00:33] LABS: Calcium 9.6 mg/dL (8.7-10.4)
[2025-04-17 00:37] LABS: BUN/Creatinine Ratio 11.1 (10.0-20.0); Glucose 91 mg/dL (74-106); Hematocrit 30.9 % (36.0-46.0); Hemoglobin 10.0 g/dL (12.2-16.2); Mean Corpuscular Hemoglobin 22.9 pg (28.0-32.0); Mean Corpuscular Volume 71.3 fL (80.0-100.0); Nucleated Red Blood Cells % 0.0 %
[2025-04-17 00:39] LABS: Blood Urea Nitrogen 8 mg/dL (9-23)
== END 2025-04-17 04:11 | disposition left against medical advice (07) ==
LOC: ER 23:30
DX: R51.9 Headache, unspecified (principal); Z53.21 Procedure and treatment not carried out due to patient leaving prior to being seen by health care provider
CPT/HCPCS: 36415; 80048; 85025; 85652; 86141